=== PATIENT | male | born 1935 | race Caucasian/White ===

== ENCOUNTER → 2018-02-04 11:56 | Outpatient (CLI) | payer MEDICARE, SELFPAY ==
[2018-02-04 14:32] LABS: Absolute Lymphocyte Count 1.62 X10^3/ul (0.83-4.51); Absolute Neutrophil Count 4.8 X10^3/uL (2.0-7.7); Basophil# 0.02 X10^3/uL; Basophil% 0.3 % (0-1); Eosinophil# 0.18 X10^3/uL; Eosinophils% 2.5 % (0-5); Hematocrit 43.4 % (40-54); Hemoglobin 15.1 g/dl (13.0-16.5); Lymphocyte # 1.62 X10^3/ul (4.0); Lymphocyte % 22.4 % (19-41); Mean Corp Hgb Conc 34.8 g/gl (32-36); Mean Corpuscular Hgb 31.1 pg (27.0-32.0); Mean Corpuscular Volume 89.5 fL (80-94); Monocyte% 8.3 % (0-10); Neutrophil # 4.81 X10^3/uL (2.7-7.7); Neutrophil % 66.4 % (47-70); Platelet Count 244 K/mm3 (150-450); RBC Distribution Width SD 45.7 fl (35.1-43.9); Red Blood Count 4.85 M/mm3 (4.6-6.2); White Blood Count 7.2 K/mm3 (4.4-11.0)
[2018-02-04 14:33] LABS: POSITIVE COUNT NO; POSITIVE DIFFERENTIAL NO; POSITIVE MORPHOLOGY NO
[2018-02-04 14:53] LABS: Vitamin D,25 Hydroxy 19.2 ng/mL (29.95-100.01)
[2018-02-04 15:01] LABS: ALB/GLOB Ratio 1.1 RATIO (0.9-2.4); AST(SGOT) 23 U/L (15-37); Alanine Aminotransfer ALT/SGPT 27 U/L (16-61); Albumin, Serum 3.8 g/dL (3.2-5.0); Alkaline Phosphatase 69 U/L (45-117); Anion Gap 12 (5-15); BUN 36 mg/dL (7-18); BUN/Creat Ratio 22.1 RATIO (10-20); Calcium,Total 8.8 mg/dL (8.5-10.1); Chloride 108 mmol/L (98-107); Cholesterol 119 mg/dL (200); Creatinine, Serum 1.63 mg/dL (0.70-1.30); EST Glomerular Filtration Rate 43 mL/min (>60); Est Glom Filt Rate - Afr Amer 52 mL/min (>60); Globulin 3.6 g/dL (2.2-4.2); Glucose 152 mg/dL (74-106); High Density Lipoprotein 37 mg/dL; Protein, Total 7.4 g/dL (6.4-8.2); Sodium Level 142 mmol/L (136-145); Thyroid Stim Hormone (TSH) 2.45 uIU/mL (0.358-3.74); Triglycerides 133 mg/dL; Very Low Density Lipoprotein 27 mg/dL (5-40)
== END ==
PROVIDERS: Family Provider Nurse Practitioner; PCP Nurse Practitioner; Visit Provider Nurse Practitioner
DX: E78.00 Pure hypercholesterolemia, unspecified (principal); I10 Essential (primary) hypertension; E55.9 Vitamin D deficiency, unspecified
CPT/HCPCS: 36415; 80053; 80061; 82306; 84443; 85025

== ENCOUNTER → 2018-04-29 11:18 | Outpatient (CLI) | payer MEDICARE, SELFPAY ==
[2018-04-29 12:10] LABS: Anion Gap 12 (5-15); BUN 34 mg/dL (7-18); BUN/Creat Ratio 22.7 RATIO (10-20); Calcium,Total 9.1 mg/dL (8.5-10.1); Chloride 111 mmol/L (98-107); EST Glomerular Filtration Rate 48 mL/min (>60); Est Glom Filt Rate - Afr Amer 58 mL/min (>60); Glucose 61 mg/dL (74-106); Potassium 4.1 mmol/L (3.5-5.1); Sodium Level 143 mmol/L (136-145)
== END ==
PROVIDERS: Family Provider Nurse Practitioner; PCP Nurse Practitioner; Visit Provider Urology
DX: C64.9 Malignant neoplasm of unspecified kidney, except renal pelvis (principal)
CPT/HCPCS: 36415; 71046; 80048

== ENCOUNTER → 2018-05-05 14:05 | Outpatient (CLI) | payer MEDICARE, SELFPAY | PROVIDERS: Family Provider Nurse Practitioner; PCP Nurse Practitioner; Visit Provider Urology | DX: C64.9 Malignant neoplasm of unspecified kidney, except renal pelvis (principal) | CPT/HCPCS: 74177; Q9967 ==

== ENCOUNTER → 2018-08-03 09:29 | Outpatient (CLI) | payer MEDICARE, SELFPAY ==
[2018-08-03 12:10] LABS: Absolute Neutrophil Count 4.1 X10^3/uL (2.0-7.7); Basophil# 0.02 X10^3/uL; Basophil% 0.3 % (0-1); Eosinophils% 2.8 % (0-5); Hematocrit 46.9 % (40-54); Hemoglobin 15.9 g/dl (13.0-16.5); Lymphocyte % 30.9 % (19-41); Mean Corp Hgb Conc 33.9 g/gl (32-36); Mean Corpuscular Hgb 30.9 pg (27.0-32.0); Mean Corpuscular Volume 91.1 fL (80-94); Mean Platelet Vol. 11.3 fl (6.2-12.0); Monocyte# 0.57 X10^3/uL; Neutrophil # 4.14 X10^3/uL (2.7-7.7); Platelet Count 215 K/mm3 (150-450); RBC Distribution Width CV 14.1 % (11.6-14.6); RBC Distribution Width SD 46.6 fl (35.1-43.9); Red Blood Count 5.15 M/mm3 (4.6-6.2); White Blood Count 7.1 K/mm3 (4.4-11.0)
[2018-08-03 12:19] LABS: POSITIVE COUNT NO; POSITIVE DIFFERENTIAL NO; POSITIVE MORPHOLOGY NO
[2018-08-03 12:25] LABS: Amphetamine Urine VISTA NEGATIVE (<1000 ng/mL); Barbiturate Urine VISTA NEGATIVE (< 200 ng/mL); Benzodiazepine Urine VISTA NEGATIVE (< 200 ng/mL); Cocaine Urine VISTA NEGATIVE (< 300 ng/mL); Ecstacy Urine VISTA NEGATIVE (< 500 ng/mL); Methadone Urine VISTA NEGATIVE (< 300 ng/mL); PCP Urine VISTA NEGATIVE (< 25 ng/mL); THC Urine VISTA NEGATIVE (< 50 ng/mL); Vista UDS pH Range 5
[2018-08-03 12:45] LABS: Vitamin D,25 Hydroxy 42.8 ng/mL (29.95-100.01)
[2018-08-03 12:54] LABS: ALB/GLOB Ratio 1.2 RATIO (0.9-2.4); AST(SGOT) 28 U/L (15-37); Alanine Aminotransfer ALT/SGPT 26 U/L (16-61); Alkaline Phosphatase 70 U/L (45-117); Anion Gap 12 (5-15); BUN 39 mg/dL (7-18); BUN/Creat Ratio 26.5 RATIO (10-20); Calcium,Total 9.2 mg/dL (8.5-10.1); Chloride 109 mmol/L (98-107); Creatinine, Serum 1.47 mg/dL (0.70-1.30); EST Glomerular Filtration Rate 49 mL/min (>60); Est Glom Filt Rate - Afr Amer 59 mL/min (>60); Globulin 3.3 g/dL (2.2-4.2); Glucose 71 mg/dL (74-106); Potassium 4.8 mmol/L (3.5-5.1); Protein, Total 7.3 g/dL (6.4-8.2); Sodium Level 141 mmol/L (136-145)
== END ==
PROVIDERS: Family Provider Nurse Practitioner; PCP Nurse Practitioner; Referring Provider Nurse Practitioner; Visit Provider Nurse Practitioner
DX: E11.9 Type 2 diabetes mellitus without complications (principal); F11.90 Opioid use, unspecified, uncomplicated; E55.9 Vitamin D deficiency, unspecified; Z79.891 Long term (current) use of opiate analgesic
CPT/HCPCS: 36415; 80053; 80307; 82306; 85025

== ENCOUNTER → 2018-11-05 08:18 | Outpatient (CLI) | payer MEDICARE, SELFPAY ==
[2018-11-05 10:16] LABS: Absolute Lymphocyte Count 2.01 X10^3/ul (0.83-4.51); Absolute Neutrophil Count 3.9 X10^3/uL (2.0-7.7); Basophil# 0.02 X10^3/uL; Basophil% 0.3 % (0-1); Eosinophil# 0.24 X10^3/uL; Eosinophils% 3.6 % (0-5); Hematocrit 44.6 % (40-54); Hemoglobin 14.9 g/dl (13.0-16.5); Lymphocyte # 2.01 X10^3/ul (4.0); Lymphocyte % 29.9 % (19-41); Mean Corp Hgb Conc 33.4 g/gl (32-36); Mean Corpuscular Hgb 30.2 pg (27.0-32.0); Mean Corpuscular Volume 90.3 fL (80-94); Mean Platelet Vol. 11.9 fl (6.2-12.0); Monocyte% 8.9 % (0-10); Neutrophil # 3.85 X10^3/uL (2.7-7.7); Neutrophil % 57.2 % (47-70); Platelet Count 217 K/mm3 (150-450); RBC Distribution Width SD 45.8 fl (35.1-43.9); Red Blood Count 4.94 M/mm3 (4.6-6.2); White Blood Count 6.7 K/mm3 (4.4-11.0)
[2018-11-05 10:17] LABS: POSITIVE COUNT NO; POSITIVE DIFFERENTIAL NO; POSITIVE MORPHOLOGY NO
[2018-11-05 10:30] LABS: Microalbumin:Creatinine Ratio 240.4 mg/g CRE (<30 mg/g CRE)
[2018-11-05 10:44] LABS: ALB/GLOB Ratio 1.1 RATIO (0.9-2.4); AST(SGOT) 26 U/L (15-37); Alanine Aminotransfer ALT/SGPT 29 U/L (16-61); Albumin, Serum 3.8 g/dL (3.2-5.0); Alkaline Phosphatase 68 U/L (45-117); Anion Gap 10 (5-15); BUN 27 mg/dL (7-18); BUN/Creat Ratio 19.3 RATIO (10-20); Calcium,Total 9.1 mg/dL (8.5-10.1); Chloride 109 mmol/L (98-107); EST Glomerular Filtration Rate 51 mL/min (>60); Est Glom Filt Rate - Afr Amer 62 mL/min (>60); Globulin 3.5 g/dL (2.2-4.2); Glucose 65 mg/dL (74-106); Potassium 4.2 mmol/L (3.5-5.1); Protein, Total 7.3 g/dL (6.4-8.2); Sodium Level 142 mmol/L (136-145); Thyroid Stim Hormone (TSH) 4.11 uIU/mL (0.358-3.74)
== END ==
PROVIDERS: Family Provider Nurse Practitioner; PCP Nurse Practitioner; Referring Provider Nurse Practitioner; Visit Provider Nurse Practitioner
DX: E11.9 Type 2 diabetes mellitus without complications (principal)
CPT/HCPCS: 36415; 80053; 82043; 82570; 84443; 85025

== ENCOUNTER → 2019-01-04 | Outpatient (CLI) | payer MEDICARE, SELFPAY ==
[2019-01-04 12:53] LABS: PSA,Total - Annual Screen 1.21 ng/mL (0.00-4.00)
== END | disposition home or self-care (01) ==
PROVIDERS: Family Provider Nurse Practitioner; PCP Nurse Practitioner; Referring Provider Nurse Practitioner; Visit Provider Nurse Practitioner
DX: Z12.5 Encounter for screening for malignant neoplasm of prostate (principal)
CPT/HCPCS: 36415; 84153; G0103

== ENCOUNTER → 2019-02-15 | Outpatient (CLI) | payer MEDICARE, SELFPAY ==
[2019-02-15 12:59] LABS: Thyroid Stim Hormone (TSH) 3.24 uIU/mL (0.358-3.74)
== END | disposition home or self-care (01) ==
PROVIDERS: Family Provider Nurse Practitioner; PCP Nurse Practitioner; Referring Provider Nurse Practitioner; Visit Provider Nurse Practitioner
DX: R79.89 Other specified abnormal findings of blood chemistry (principal); I10 Essential (primary) hypertension
CPT/HCPCS: 36415; 84443

== ENCOUNTER → 2019-08-23 12:38 | Outpatient (CLI) | payer MEDICARE, SELFPAY ==
[2019-08-23 13:55] LABS: Absolute Lymphocyte Count 1.69 X10^3/uL (0.83-4.51); Absolute Neutrophil Count 4.4 X10^3/uL (2.0-7.7); Basophil# 0.02 X10^3/uL; Basophil% 0.3 % (0-1); Eosinophil# 0.16 X10^3/uL; Eosinophils% 2.3 % (0-5); Hemoglobin 15.5 g/dL (13.0-16.5); Lymphocyte # 1.69 X10^3/ul (4.0); Lymphocyte % 24.7 % (19-41); Mean Corp Hgb Conc 35.2 g/dL (32-36); Mean Corpuscular Hgb 31.4 pg (27.0-32.0); Mean Corpuscular Volume 89.1 fL (80-94); Mean Platelet Vol. 11.9 fl (6.2-12.0); Monocyte# 0.59 X10^3/uL; Monocyte% 8.6 % (0-10); NRBC Flagged by Analyzer 0 % (0-5); Neutrophil # 4.37 X10^3/uL (2.7-7.7); Neutrophil % 63.8 % (47-70); Platelet Count 226 K/mm3 (150-450); RBC Distribution Width CV 13.2 % (11.6-14.6); RBC Distribution Width SD 42.9 fl (35.1-43.9); Red Blood Count 4.94 M/mm3 (4.6-6.2); White Blood Count 6.9 K/mm3 (4.4-11.0)
[2019-08-23 14:15] LABS: Vitamin B12 485 pg/mL (211-911)
[2019-08-23 14:47] LABS: AST(SGOT) 23 U/L (15-37); Alanine Aminotransfer ALT/SGPT 28 U/L (16-61); Albumin, Serum 3.7 g/dL (3.2-5.0); Alkaline Phosphatase 69 U/L (45-117); Anion Gap 8 (5-15); BUN 28 mg/dL (7-18); BUN/Creat Ratio 18.5 RATIO (10-20); Calcium,Total 9.2 mg/dL (8.5-10.1); Chloride 106 mmol/L (98-107); Creatinine, Serum 1.51 mg/dL (0.70-1.30); EST Glomerular Filtration Rate 47 mL/min (>60); Est Glom Filt Rate - Afr Amer 57 mL/min (>60); Globulin 3.8 g/dL (2.2-4.2); Glucose 118 mg/dL (74-106); Potassium 4.2 mmol/L (3.5-5.1); Protein, Total 7.5 g/dL (6.4-8.2); Sodium Level 138 mmol/L (136-145); Thyroid Stim Hormone (TSH) 1.89 uIU/mL (0.358-3.74)
== END ==
PROVIDERS: Family Provider Nurse Practitioner; PCP Nurse Practitioner; Referring Provider Nurse Practitioner; Visit Provider Nurse Practitioner
DX: I10 Essential (primary) hypertension (principal); D64.9 Anemia, unspecified; E53.8 Deficiency of other specified B group vitamins
CPT/HCPCS: 36415; 80053; 82607; 82746; 84443; 85025

== ENCOUNTER → 2019-10-25 12:21 | Outpatient (CLI) | payer MEDICARE, SELFPAY ==
[2019-10-25 12:40] LABS: Absolute Lymphocyte Count 1.86 X10^3/uL (0.83-4.51); Absolute Neutrophil Count 4.4 X10^3/uL (2.0-7.7); Basophil# 0.02 X10^3/uL; Basophil% 0.3 % (0-1); Eosinophil# 0.19 X10^3/uL; Eosinophils% 2.7 % (0-5); Hematocrit 42.8 % (40-54); Hemoglobin 14.6 g/dL (13.0-16.5); Lymphocyte # 1.86 X10^3/ul (4.0); Lymphocyte % 26.1 % (19-41); Mean Corp Hgb Conc 34.1 g/dL (32-36); Mean Corpuscular Volume 90.9 fL (80-94); Mean Platelet Vol. 11.8 fl (6.2-12.0); Monocyte# 0.61 X10^3/uL; Monocyte% 8.6 % (0-10); NRBC Flagged by Analyzer 0 % (0-5); Neutrophil # 4.42 X10^3/uL (2.7-7.7); Platelet Count 244 K/mm3 (150-450); RBC Distribution Width CV 13.8 % (11.6-14.6); RBC Distribution Width SD 46.3 fl (35.1-43.9); Red Blood Count 4.71 M/mm3 (4.6-6.2); White Blood Count 7.1 K/mm3 (4.4-11.0)
[2019-10-25 13:02] LABS: ALB/GLOB Ratio 0.9 RATIO (0.9-2.4); AST(SGOT) 16 U/L (15-37); Alanine Aminotransfer ALT/SGPT 26 U/L (16-61); Albumin, Serum 3.6 g/dL (3.2-5.0); Alkaline Phosphatase 72 U/L (45-117); Anion Gap 9 (5-15); BUN 36 mg/dL (7-18); BUN/Creat Ratio 23.1 RATIO (10-20); CPK Total, Creatine Kinase 69 U/L (39-308); Calcium,Total 9.7 mg/dL (8.5-10.1); Chloride 108 mmol/L (98-107); Creatinine, Serum 1.56 mg/dL (0.70-1.30); EST Glomerular Filtration Rate 45 mL/min (>60); Est Glom Filt Rate - Afr Amer 55 mL/min (>60); Globulin 3.8 g/dL (2.2-4.2); Glucose 158 mg/dL (74-106); Potassium 4.6 mmol/L (3.5-5.1); Protein, Total 7.4 g/dL (6.4-8.2); Sodium Level 143 mmol/L (136-145); Thyroid Stim Hormone (TSH) 2.43 uIU/mL (0.358-3.74)
[2019-10-26 20:07] LABS: Creatine Kinase MB 0 % (0-3); Creatine Kinase MM 100 % (97-100); Creatine Kinase,Total,Serum 70 U/L (24-204); Macro I 0 % (Not Observed); Macro II 0 % (Not Observed)
[2019-10-26 20:13] LABS: Creatine Kinase BB 0 % (0)
== END ==
PROVIDERS: PCP Nurse Practitioner; Referring Provider Nurse Practitioner; Visit Provider Nurse Practitioner
DX: R42 Dizziness and giddiness (principal); R00.1 Bradycardia, unspecified
CPT/HCPCS: 80053; 82550; 82552; 84443; 84484; 85025

== ENCOUNTER → 2019-10-26 13:11 | Outpatient (CLI) | payer MEDICARE, SELFPAY | PROVIDERS: PCP Nurse Practitioner; Referring Provider Nurse Practitioner; Visit Provider Nurse Practitioner | DX: R42 Dizziness and giddiness (principal); R00.1 Bradycardia, unspecified | CPT/HCPCS: 93225; 93226 ==

== ENCOUNTER → 2020-11-14 10:26 | Outpatient (CLI) | payer MEDICARE, SELFPAY ==
[2020-11-14 12:17] LABS: Absolute Lymphocyte Count 2.19 X10^3/uL (0.83-4.51); Absolute Neutrophil Count 4.6 X10^3/uL (2.0-7.7); Basophil# 0.03 X10^3/uL; Basophil% 0.4 % (0-1); Eosinophil# 0.19 X10^3/uL; Eosinophils% 2.5 % (0-5); Hematocrit 45.8 % (40-54); Hemoglobin 15.9 g/dL (13.0-16.5); Lymphocyte # 2.19 X10^3/ul (4.0); Mean Corp Hgb Conc 34.7 g/dL (32-36); Mean Corpuscular Hgb 31.2 pg (27.0-32.0); Mean Platelet Vol. 12.2 fl (6.2-12.0); Monocyte# 0.48 X10^3/uL; Monocyte% 6.4 % (0-10); NRBC Flagged by Analyzer 0 % (0-5); Neutrophil # 4.64 X10^3/uL (2.7-7.7); Neutrophil % 61.4 % (47-70); Platelet Count 256 K/mm3 (150-450); RBC Distribution Width CV 13.9 % (11.6-14.6); Red Blood Count 5.09 M/mm3 (4.6-6.2); White Blood Count 7.6 K/mm3 (4.4-11.0)
[2020-11-14 12:48] LABS: AST(SGOT) 25 U/L (15-37); Alanine Aminotransfer ALT/SGPT 30 U/L (16-61); Albumin, Serum 3.6 g/dL (3.2-5.0); Alkaline Phosphatase 77 U/L (45-117); Anion Gap 8 (5-15); BUN 25 mg/dL (7-18); BUN/Creat Ratio 18.5 RATIO (10-20); Calcium,Total 9.2 mg/dL (8.5-10.1); Chloride 108 mmol/L (98-107); Creatinine, Serum 1.35 mg/dL (0.70-1.30); EST Glomerular Filtration Rate 53 mL/min (>60); Est Glom Filt Rate - Afr Amer 65 mL/min (>60); Globulin 3.5 g/dL (2.2-4.2); Glucose 84 mg/dL (74-106); Potassium 4.1 mmol/L (3.5-5.1); Protein, Total 7.1 g/dL (6.4-8.2); Sodium Level 141 mmol/L (136-145); Thyroid Stim Hormone (TSH) 2.63 uIU/mL (0.358-3.74)
[2020-11-14 12:57] LABS: Microalbumin:Creatinine Ratio 907.1 mg/g CRE (<30 mg/g CRE)
== END ==
PROVIDERS: PCP Nurse Practitioner; Referring Provider Nurse Practitioner; Visit Provider Nurse Practitioner
DX: N18.9 Chronic kidney disease, unspecified (principal)
CPT/HCPCS: 36415; 80053; 82043; 82570; 84443; 85025

== ENCOUNTER → 2021-02-26 10:33 | Outpatient (CLI) | payer MEDICARE, SELFPAY ==
--- NOTE | 2021-02-26 10:37 | RAD_ITS ---
STUDY: X-RAY - LEFT FOOT CLINICAL: Male, 86 years old. Pain. TECHNIQUE: 3 view(s) of the foot. COMPARISON: None. FINDINGS: Generalized osteopenia. Inferior calcaneal spur. Mild arthrosis of the MTP and IP joints with hammertoe deformities. Linear metallic foreign body projected just medial to the PIP joint of the fifth toe. RAD/Foot min 3 Views IMPRESSION: Osteopenia with osteoarthritic changes. Linear metallic foreign body as described. No acute finding. Electronically Signed: Dandre Flood MD at 10:53 EDT , Service support ,
[2021-02-26 12:25] LABS: Absolute Lymphocyte Count 1.46 X10^3/uL (0.83-4.51); Absolute Neutrophil Count 11.3 X10^3/uL (2.0-7.7); Basophil# 0.03 X10^3/uL; Basophil% 0.2 % (0-1); Eosinophil# 0.08 X10^3/uL; Eosinophils% 0.6 % (0-5); Hematocrit 42.6 % (40-54); Hemoglobin 14.7 g/dL (13.0-16.5); Lymphocyte # 1.46 X10^3/ul (0.83-4.51); Lymphocyte % 10.4 % (19-41); Mean Corp Hgb Conc 34.5 g/dL (32-36); Mean Corpuscular Hgb 30.9 pg (27.0-32.0); Mean Corpuscular Volume 89.7 fL (80-94); Mean Platelet Vol. 11.9 fl (6.2-12.0); Monocyte# 1.13 X10^3/uL; NRBC Flagged by Analyzer 0 % (0-5); Neutrophil # 11.32 X10^3/uL (2.7-7.7); Neutrophil % 80.4 % (47-70); Platelet Count 286 K/mm3 (150-450); RBC Distribution Width CV 13.2 % (11.6-14.6); RBC Distribution Width SD 43.4 fl (35.1-43.9); Red Blood Count 4.75 M/mm3 (4.6-6.2); White Blood Count 14.1 K/mm3 (4.4-11.0)
[2021-02-26 13:14] LABS: Erythrocyte Sedimentation Rate 68 mm/hr (0-20)
[2021-02-26 13:21] LABS: ALB/GLOB Ratio 0.7 RATIO (0.9-2.4); AST(SGOT) 16 U/L (15-37); Alanine Aminotransfer ALT/SGPT 21 U/L (16-61); Albumin, Serum 3.2 g/dL (3.2-5.0); Alkaline Phosphatase 86 U/L (45-117); Anion Gap 11 (5-15); BUN 27 mg/dL (7-18); BUN/Creat Ratio 15.2 RATIO (10-20); Calcium,Total 9.6 mg/dL (8.5-10.1); Chloride 106 mmol/L (98-107); Creatinine, Serum 1.78 mg/dL (0.70-1.30); EST Glomerular Filtration Rate 39 mL/min (>60); Est Glom Filt Rate - Afr Amer 47 mL/min (>60); Globulin 4.6 g/dL (2.2-4.2); Glucose 192 mg/dL (74-106); Potassium 4.4 mmol/L (3.5-5.1); Protein, Total 7.8 g/dL (6.4-8.2); Sodium Level 139 mmol/L (136-145); Thyroid Stim Hormone (TSH) 2.27 uIU/mL (0.358-3.74); Uric Acid 6.5 mg/dL (3.5-7.2)
== END ==
PROVIDERS: PCP Nurse Practitioner; Referring Provider Nurse Practitioner; Visit Provider Nurse Practitioner
DX: M79.672 Pain in left foot (principal); L08.9 Local infection of the skin and subcutaneous tissue, unspecified; I10 Essential (primary) hypertension
CPT/HCPCS: 36415; 73630; 80053; 84443; 84550; 85025; 85652; 86141

== ENCOUNTER → 2021-03-05 10:44 | Outpatient (CLI) | payer MEDICARE, SELFPAY ==
--- NOTE | 2021-03-05 10:45 | ART_ITS ---
Reason For Study: PVD Procedure A bilateral lower extremity continuous wave Doppler with analog waveform analysis,segmental pressures,and ankle brachial indexes without exercise. Left Segmental Pressures Left brachial= 134mmHg. Left thigh = NCmmHg. Left calf = 116mmHg. Left posterior tibial artery = 120mmHg. Left dorsalis pedis artery = 78mmHg. Left digit = 18 mmHg. The left dorsalis pedis waveforms are monophasic. The left posterior tibial artery waveforms are monophasic. Right Segmental Pressures Right brachial= 130mmHg. Right calf = 176mmHg. Right posterior tibial artery = 123mmHg. Right dorsalis pedis artery = 117mmHg. Right digit = 32 mmHg. The right dorsalis pedis waveforms are monophasic. The right posterior tibial artery waveforms are biphasic. Indices The right ankle brachial index by the dorsalis pedis is .87. The right ankle brachial index by the posterior tibial artery is .92. The right digital-brachial index is .24. The left ankle brachial index by the posterior tibial artery is .9. The left ankle brachial index by the dorsalis pedis is .58. The left digital-brachial index is .13. VL/Lower Ext Art Exam w/o Exercis Interpretation Summary Moderately severe bilateral lower extremity arterial occlusive disease at rest based upon ankle- brachial indices. The right posterior tibialis Doppler waveform is biphasic while the dorsalis pe dis is monophasic. The left posterior tibialis and dorsalis pedis Doppler waveforms are both monop hasic Monophasic Doppler waveforms correlate with a more severe level of occlusive di sease The volume pulse recordings demonstrate a significant diminishment in amplitude at the level of the ankles bilaterally consistent with infrageniculate arterial occlusive disease Digital brachial indices are significantly abnormal bilaterally Ordering Physician: Kristy Kothari Referring Physician: KAELYN BEAN Performed By: JAMES GOMEZ RDCS
== END ==
PROVIDERS: PCP Nurse Practitioner; Referring Provider Podiatrist; Visit Provider Podiatrist
DX: I73.9 Peripheral vascular disease, unspecified (principal); L97.522 Non-pressure chronic ulcer of other part of left foot with fat layer exposed
CPT/HCPCS: 93923

== ENCOUNTER → 2021-03-15 14:37 | Outpatient (CLI) | payer MEDICARE, SELFPAY ==
[2021-03-15 14:58] LABS: Absolute Lymphocyte Count 1.79 X10^3/uL (0.83-4.51); Absolute Neutrophil Count 8.3 X10^3/uL (2.0-7.7); Basophil# 0.05 X10^3/uL; Basophil% 0.5 % (0-1); Eosinophil# 0.19 X10^3/uL; Eosinophils% 1.7 % (0-5); Hematocrit 43.2 % (40-54); Hemoglobin 14.8 g/dL (13.0-16.5); Lymphocyte # 1.79 X10^3/ul (0.83-4.51); Lymphocyte % 16.3 % (19-41); Mean Corp Hgb Conc 34.3 g/dL (32-36); Mean Corpuscular Hgb 30.5 pg (27.0-32.0); Mean Corpuscular Volume 89.1 fL (80-94); Mean Platelet Vol. 10.7 fl (6.2-12.0); Monocyte# 0.67 X10^3/uL; Monocyte% 6.1 % (0-10); NRBC Flagged by Analyzer 0 % (0-5); Neutrophil # 8.27 X10^3/uL (2.7-7.7); Neutrophil % 75.1 % (47-70); Platelet Count 480 K/mm3 (150-450); RBC Distribution Width CV 13.2 % (11.6-14.6); RBC Distribution Width SD 43.3 fl (35.1-43.9); Red Blood Count 4.85 M/mm3 (4.6-6.2)
[2021-03-15 15:13] LABS: Anion Gap 7 (5-15); BUN 27 mg/dL (7-18); BUN/Creat Ratio 18.4 RATIO (10-20); Calcium,Total 9.1 mg/dL (8.5-10.1); Chloride 106 mmol/L (98-107); Creatinine, Serum 1.47 mg/dL (0.70-1.30); EST Glomerular Filtration Rate 48 mL/min (>60); Est Glom Filt Rate - Afr Amer 58 mL/min (>60); Glucose 223 mg/dL (74-106); Potassium 4.4 mmol/L (3.5-5.1); Sodium Level 140 mmol/L (136-145)
== END ==
PROVIDERS: Physician Assistant; PCP Nurse Practitioner; Referring Provider Surgery; Visit Provider Surgery
DX: I10 Essential (primary) hypertension (principal); I73.9 Peripheral vascular disease, unspecified
CPT/HCPCS: 36415; 80048; 85025

== ENCOUNTER 2021-03-21 15:31 | Observation (INO) | payer MEDICARE, SELFPAY ==
[2021-03-20 13:38] VITALS: BMI 29.0
--- NOTE | 2021-03-21 08:56 | PCM.HP.BLA ---
History and Physical Date of Admission: 03/21/21 Intake Visit Reasons: PAD Chief Complaint: PAD/Gangreen toe left foot Consolidation Accountant Required: No Accompanied by: Unknown Is patient in pain?: No Allergies No Known Allergies Allergy (Verified 03/15/21 13:59) Medications amlodipine 10 mg PO DAILY 10/31/14 [History Confirmed 03/15/21] lorazepam 0.5 mg PO TID PRN PRN 10/31/14 [History Confirmed 03/15/21] simvastatin 20 mg PO QHS 10/31/14 [History Confirmed 03/15/21] empagliflozin 10 mg tablet 10 mg PO DAILY 12/27/19 [History Confirmed 03/15/21] glipizide 5 mg tablet, extended release 24 hr 5 mg PO DAILY 12/27/19 [History Confirmed 03/15/21] hydrocodone 10 mg-acetaminophen 325 mg tablet 1 tab PO Q8H PRN 12/27/19 [History Confirmed 03/15/21] lisinopril 40 mg tablet 40 mg PO DAILY 12/27/19 [History Confirmed 03/15/21] melatonin 10 mg capsule 10 mg PO HS PRN 12/27/19 [History Confirmed 03/15/21] metformin 500 mg tablet,extended release 24 hr 500 mg PO DAILY 12/27/19 [History Confirmed 03/15/21] vitamin B complex 1 tab PO DAILY 12/27/19 [History Confirmed 03/15/21] esomeprazole magnesium 20 mg capsule,delayed release 20 mg PO DAILY 03/15/21 [History Confirmed 03/15/21] famotidine 20 mg tablet 20 mg PO QHS PRN 03/15/21 [History Confirmed 03/15/21] omeprazole magnesium 20 mg tablet,delayed release 20 mg PO DAILY 03/15/21 [History Confirmed 03/15/21] tamsulosin 0.4 mg capsule 0.4 mg PO DAILY 03/15/21 [History Confirmed 03/15/21] [facility] Medical History (Updated 03/15/21 @ 14:[address] Yovani Mackay MD) Anxiety and depression B12 deficiency Benign prostatic hyperplasia without lower urinary tract symptoms Chronic kidney disease, unspecified Diverticulosis of large intestine without perforation or abscess without bleeding Essential hypertension Gangrene of toe of left foot GERD (gastroesophageal reflux disease) Hallux valgus History of chronic pain History of kidney cancer History of spinal stenosis Hyperlipidemia Insomnia PAD (peripheral artery disease) Tinea pedis Tinea unguium Type 2 diabetes mellitus without complication Vitamin D deficiency, unspecified Surgical History History of appendectomy History of partial nephrectomy History of phacoemulsification of cataract of both eyes with intraocular lens implantation History of rotator cuff surgery Family History Father CVA (cerebral vascular accident) Social History Smoking Status: Never smoker alcohol intake: former year quit: 1989 substance use type: does not use caffeine: Yes HPI HPI HPI: RADHA BETHEA, is a 86 M who presents to the office today for surgical consultation regarding peripheral arterial occlusive disease. The patient is being referred by Dr. Kristy Kothari and a written copy of my surgical consult and recommendations will return to her. Primary care provider is Kaelyn Bean, and [facility]. The patient presented to Dr. Kothari with what appeared to be a gangrenous left fifth toe. By report x-rays show a small piece of wire noted in the distal anterior phalangeal joint medial left fifth toe. Betadine cleansing was recommended. It was recommended to cease the peroxide and to cease ointments. The patient has a history of renal cancer with partial nephrectomy on the right. Laboratory of February 26, 2021 demonstrated a elevated white count of 14.1 with hemoglobin 14.7 hematocrit 42.6 platelet count 286,000. Sed rate was elevated at 68. BUN elevated at 27 with a creatinine of 1.78 and an estimated GFR of 39 placing him in chronic kidney disease stage IIIb. Glucose at that time was 192. A hemoglobin A1c was not obtained at that moment. Noninvasive lower extremity exam was obtained on March 05, 2021. Unfortunate these were difficult to interpret secondary to suspected medial calcification of vessel newman. The patient states that he did have blunt trauma to the left fifth toe. He admits to stubbing it. He states that remotely he worked in the [employer]. 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 Claims that he did not smoke tobacco. He denies myocardial infarction or stroke. States he has never had any previous vascular surgery. He states that he previously was on a 325 mg aspirin tablet per day. He states it may be 3 weeks ago he on his own decided to stop it. I have instructed that on February 26, 2021 his hemoglobin A1c was 6.5. March 05, 2021 Reason For Study: PVD Procedure A bilateral lower extremity continuous wave Doppler with analog waveform analysis,segmental pressures,and ankle brachial indexes without exercise. Left Segmental Pressures Left brachial= 134mmHg. Left thigh = NCmmHg. Left calf = 116mmHg. Left posterior tibial artery = 120mmHg. Left dorsalis pedis artery = 78mmHg. Left digit = 18 mmHg. The left dorsalis pedis waveforms are monophasic. The left posterior tibial artery waveforms are monophasic. Right Segmental Pressures Right brachial= 130mmHg. Right calf = 176mmHg. Right posterior tibial artery = 123mmHg. Right dorsalis pedis artery = 117mmHg. Right digit = 32 mmHg. The right dorsalis pedis waveforms are monophasic. The right posterior tibial artery waveforms are biphasic. Indices The right ankle brachial index by the dorsalis pedis is .87. The right ankle brachial index by the posterior tibial artery is .92. The right digital-brachial index is .24. The left ankle brachial index by the posterior tibial artery is .9. The left ankle brachial index by the dorsalis pedis is .58. The left digital-brachial index is .13. VL/Lower Ext Art Exam w/o Exercis Interpretation Summary Moderately severe bilateral lower extremity arterial occlusive disease at rest based upon ankle- brachial indices. The right posterior tibialis Doppler waveform is biphasic while the dorsalis pedis is monophasic. The left posterior tibialis and dorsalis pedis Doppler waveforms are both monophasic Monophasic Doppler waveforms correlate with a more severe level of occlusive disease The volume pulse recordings demonstrate a significant diminishment in amplitude at the level of the ankles bilaterally consistent with infrageniculate arterial occlusive disease Digital brachial indices are significantly abnormal bilaterally Ordering Physician: Kristy Kothari Referring Physician: KAELYN BEAN Performed By: JAMES GOMEZ [facility] General General: No weight change, appetite, fatigue, colon cancer, breast cancer or weakness HEENT HEENT: No difficulty swallowing, eye injury, eye surgery, swollen glands or hoarseness Endo Endocrine: Yes diabetes mellitus; No thyroid disease, thyroid cancer, Hair loss, heat intolerance or cold intolerance Skin Skin: No rash or changing moles Breast Breast: No left breast lump, right breast lump, nipple discharge, breast pain, abnormal mammogram, abnormal US or breast enlargement Musc Musculoskeletal: Yes back problems; No arthritis, rheumatoid arthritis, gout or joint pain Cardio Cardiovascular: Yes high blood pressure; No murmur, pacemaker, heart disease, atrial fibrillation, heart attack, heart stent, palpitations, shortness of breat with exertion or chest pain Psych Psychiatric: No depression, anxiety or hearing voices Resp Respiratory: No shortness of breath, No sleep apnea, No cough, No COPD, No asthma, No emphysema and No wheezing Gastro Gastrointestinal: No abdominal pain, No nausea or vomiting, No diarrhea, No constipation, No blood in stool, No acid reflux, No hemorrhoids, No ulcers, No gallbladder problem and No black,tarry stools Levar Hematologic: Yes blood thinners, No blood disorders, No bleeding, No anemia and No blood clots Neuro Neurologic: No system reviewed and no additional complaints, except as documented, No as per HPI, No abnormal gait, No abnormal hearing, No abnormal movements, No abnormal speech, No behavioral changes, No burning sensations, No confusion, No convulsions, No disequilibrium, No dizziness, No localized weakness, No frequent falls, No headache(s), No lack of coordination, No loss of vision, No memory loss, Yes numbness, No other visual disturbances, No radicular pain, No restless legs, No sensory deficit, No syncope, Yes tingling, No tremor(s), No weakness and No other Exam Const General: cooperative, comfortable and no acute distress Nutritional Appearance: average body habitus Other: Dyspneic on exertion just getting up on the exam table HENMT Other: Unkempted Eyes General: appearance normal, both eyes and all related structures Chest Other: Kyphosis, increased AP diameter, Resp Auscultation: clear to auscultation bilaterally Other: Reasonable respiratory excursion Cardio Rate: regular rate Rhythm: regular rhythm Other: Bilateral radials 3+. Bilateral brachials 3+. Bilateral carotids 3+. No carotid bruits Bilateral femorals 3+. Bilateral popliteals 3+. Bilateral DPs and PTs are absent GI Palpation: soft and no hepatosplenomegaly Auscultation: normal bowel sounds Musc Other: Kyphosis Neuro Cognition: normal cognition Extrem Other: Both lower extremities demonstrate appropriate and normal venous return filling. Both feet have atrophied toes there is lack of appropriate coloration with paleness of the right foot and hyperemic left foot. Left foot has mild nonpitting swelling. There is dark gangrenous changes of the left fifth digit with eschar tissue at the base of the fifth metatarsal phalangeal joint area. There is a very mild odor. There is erythema on the dorsum of the foot. Psych Affect: normal affect COVID (Procedure Consent) Procedure Criteria Procedure Criteria: Yes Elective The surgeon/proceduralist and patient have discussed in detail the risk of exposure to and/or potential harm posed by the COVID-19 virus with having a surgery/procedure at this time versus the risk of delaying the surgery/procedure. It is not possible to know either the risk of delaying the surgery or procedure or chance of getting an infection with perfect accuracy, but a joint decision was made between the patient and the surgeon/proceduralist to proceed at this time with the scheduled surgery/procedure as indicated on the consent form. Assessment and Plan Assessment and Plan (1) PAD (peripheral artery disease): Status: Acute (2) Gangrene of toe of left foot: Status: Acute (3) Essential hypertension: Status: Chronic Orders: Orders: Basic Metabolic Profile (BMP) Today I73.9 CBC W/Diff, Automated Today I73.9, I10 Plan - Dr. Yovani Mackay MD: 86-year-old gentleman who has gangrene of the left fifth toe. On noninvasive testing and on clinical exam he appears to have bilateral severe infrageniculate arterial occlusive disease. Likely a combination of chronic diabetes mellitus and hyperlipidemia and hypertension. I have instructed the patient that on his appearance today he certainly at high risk for limb loss. I have described to him in great detail that his blockages appear to be from the knee distally. I have absolutely made no guarantees that I can improve his situation with an endovascular approach. I proposed a right common femoral artery access with retrograde approach to the left lower extremity. I have educated the patient that he has stage 3B. I have instructed him that for infrageniculate work I will need to use a contrast medium in order to visualize the vessels and perform intervention. I have not provided him any guarantees that I would be able to improve the situation. He is aware that the innervation could deteriorate the small amount of blood flow that he has currently. I have asked him to resume his aspirin therapy and requested that he initiate aspirin 81 mg daily. The patient had questions regarding his wound foot care management which I have referred him back to Dr. Kothari please He has had an opportunity to ask and have questions answered. He is well aware that he is at risk for digit loss forefoot loss or below-knee leg loss. He is additionally aware as he requires 2 canes to mobilize currently that he would very well likely not be able to utilize a left below-knee prosthesis to ambulate,. Based upon his history I am assuming that his spinal stenosis is complicating the use of his lower extremities. He has had an opportunity to ask and have questions answered. We will schedule and expedite his care. Copy: HELEN DoshiC and Dr. Kristy Mackay M.D., F.A.C.S. I have re-examined the patient. There are no clinical changes since date of exam.
--- NOTE | 2021-03-21 10:51 | PCM.OPRPT ---
Problems Associated Problem List Diagnoses (1) Gangrene of toe of left foot: (2) PAD (peripheral artery disease): Report of Operation Date of Procedure: 03/21/21 Pre-Operative Diagnosis: Critical ischemia left foot with gangrene of the left fifth toe Post-Operative Diagnosis: Critical ischemia left foot with gangrene of the left fifth toe and occlusion of the left anterior tibial artery with severe multi segmental disease of the left peroneal and posterior tibial arteries Surgery/Procedure Performed:: Abdominal pelvic left lower extremity arteriogram with left posterior tibial 2.5 to 3 mm tapered Genesis cross angioplasty and left peroneal 2.5 to 3 mm tapered angioplasty Description of Surgical Findings:: Timeout and informed consent was obtained. 86-year-old gentleman was taken to the special procedures lab placed upon the table. Bilateral groins were sterilely prepped and draped. Throughout the procedure he received a total of 50 mcg of fentanyl and 3 mg of Versed his intravenous sedation. Under ultrasound guidance the right common femoral artery was identified. 2% lidocaine was instilled. Under ultrasound guidance a micropuncture needle was placed retrograde into the right common femoral artery followed by Salinger wire micropuncture sheath and then a short 5 Venezuelan sheath dilator. Using an 035 angled Glidewire a 5 Venezuelan universal flush catheter was placed in the mid infrarenal abdominal aorta. Using Visipaque contrast a abdominal pelvic arteriogram was obtained. Then using the Glidewire the flush catheter was advanced to the proximal left superficial femoral artery. Static views of the left lower extremity were obtained to the proximal calf. I then exchanged out for a Magic wire. I removed the 5 Venezuelan sheath and placed a 45 cm right tip 5 Venezuelan sheath. The patient received 9000 units of heparin. Based upon ACT measurements throughout the procedure he received another 1000 units. Using a 018 quick cross catheter and a 018 airplane pilot photogrammetry wire I was able to get access to the left posterior tibial artery and was able to advance the wire down to and past the malleolus. I advanced the 2.5 to 3 mm tapered Genesis cross balloon to just past the ankle mortise. Balloon angioplasty was performed up to 14 ruthie of pressure for 3 separate maneuvers treating the entire length of the left posterior tibial artery. A completion view was obtained demonstrating dramatic improvement. Utilizing the balloon and smart masking I was able to gain access to the left peroneal artery. In a stepwise fashion this also was serially dilated with a 2.5 to 3 mm tapered balloon. In order to achieve that I had to advance in the balloon and wire to met resistance perform angioplasty and then readvanced the balloon. I was able to treat the left peroneal artery down to the ankle mortise but not upon the foot. The balloon was then removed completion views now demonstrated dramatic improvement in both the left peroneal and posterior tibial arteries. The sheath was exchanged out for short 5 Venezuelan sheath. A 5 Venezuelan minx device was inserted and deployed. Hemostasis was achieved. The left foot had been inspected it now had a palpable 2+ posterior tibial pulse. Specimens none. Drains none. Blood loss minimal. Contrast 60 cc. The patient tolerated the procedure well and he was taken to the recovery area in satisfactory condition without apparent complication. Imaging demonstrates a patent abdominal aorta and bilateral common iliacs bilateral internal iliacs. The left common femoral profundofemoral superficial femoral and popliteal tibial are patent. The left anterior tibial is patent proximally and then very rapidly seemingly completely obstructs. The left peroneal and posterior tibial have diffuse areas of multi segmental occlusive disease involving the tibial peroneal trunk as well. There is flow past the ankle mortise of the left posterior tibial. The peroneal and is shy. Subsequent to the angioplasty of the left peroneal and posterior tibial both these vessels appear to be markedly improved. There is some disease distally in the anterior tibial that remains and there is a small area of plaque in the proximal left peroneal. I felt that further intervention risk potential injury. Yovani Mackay M.D., F.A.C.S. Surgeon: Yovani Mackay Type of Anesthesia: IV Sedation and Local
[2021-03-21 12:05] LABS: Bedside Glucose 106 mg/dL (70-110)
[2021-03-21 13:56] LABS: Bedside Glucose 100 mg/dL (70-110)
--- NOTE | 2021-03-21 15:00 | PN.SURG_ITS ---
Subjective Subjective Patient noted some discomfort in the right groin. Earlier I was called to see this patient in the recovery area of the [facility]. Pressure had been held and pressure was relieved hematoma formed pressure was reheld and then recurrent hematoma formed at that point I was notified. As far as I can tell pressure was held from staff controlled and then staff would be out of the room when then the hematoma recurred. It is of note that the patient had to be reminded multiple times during his procedure in the [facility] about remaining still while intervention was taking place. Objective Data Objective Data Vital Signs: Weight: 184 lb 15.838 oz Body Mass Index (BMI) 29.0 Lab / Micro Data Labs: Laboratory Results - last 24 hr 03/21/21 11:59: POC Glucose 106 03/21/21 13:49: POC Glucose 100 Physical Exam Extremity Extremity Narrative: Right groin is not bleeding externally. There is some swelling medially at the pubis. The artery right common femoral and external iliac easily palpable and can nicely be compressed. Assessment & Plan Assessment/Plan (1) Hematoma: PLAN: Right groin hematoma no active bleeding identified on duplex imaging. I have some concerns that this 86-year-old gentleman is having difficulties with remaining still. At this point I think the safest maneuver is to continue to observe him in the cardiac catheterization lab recovery area and then him admit him for postoperative observation. I have concerns that he may not be able to abide by instructions regarding lying still and activity. There is no current suggestion of any puncture site bleeding. This appears to be well controlled. I suspect it may have been initiated by activity prior to the prescribed amount of bed rest. We will continue to observe. Yovani Mackay M.D., F.A.C.S.
[2021-03-21 15:58] VITALS: BMI 24.2
[2021-03-21 16:00] VITALS: BP 155/73; PULSE 76; RESP 17; TEMP 36.4; O2SAT 98
[2021-03-21] MEDS: 0.9% Normal Saline 1,000 ML 30 ML IV (16:00)
--- NOTE | 2021-03-21 16:04 | PCM.PN.SRG ---
Subjective Subjective Patient is without complaints. He feels that his left foot is more alive. He denies any current right groin pain Objective Data Objective Data Vital Signs: Weight: 184 lb 15.838 oz Body Mass Index (BMI) 29.0 Lab / Micro Data Labs: Laboratory Results - last 24 hr 03/21/21 11:59: POC Glucose 106 03/21/21 13:49: POC Glucose 100 Physical Exam Extremity Extremity Narrative: Right groin clean dry, supple, not pulsatile or expansile, nontender Left lower extremity has a palpable 2+ PT pulse, pink but diminished capillary refill. Assessment & Plan Assessment/Plan (1) Hematoma: PLAN: Patient appears to be very stable. He would otherwise meet criteria for discharge however I believe that he requires intensive observation so that he does not mobilize and agitate and restart right groin bleeding. Unfortunate I believe that he will require constant reminding and observation in order to achieve this. This can most safely be performed in an overnight observation in the hospital. Yovani Mackay M.D., F.A.C.S.
[2021-03-21 17:00] VITALS: BP 144/95; PULSE 83
[2021-03-21 18:00] VITALS: BP 147/79; PULSE 75; O2SAT 98
[2021-03-21 19:00] VITALS: BP 146/77; PULSE 77; O2SAT 98
[2021-03-21 19:33] VITALS: RESP 18; O2SAT 98
[2021-03-21 20:00] VITALS: BP 153/77; PULSE 77; RESP 20; TEMP 36.8; O2SAT 97
[2021-03-21] MEDS: Amox/Clavulanate 875 MG Tablet PO (20:35)
[2021-03-22 02:55] VITALS: BP 124/70; PULSE 91; RESP 18; TEMP 37.1; O2SAT 97
--- NOTE | 2021-03-22 05:26 | PN.SURG_ITS ---
Subjective Subjective Patient has no current complaint. No pain in the right groin. The left foot feels warmer. Objective Data Objective Data Vital Signs: Vital Signs Temp Pulse Resp BP Pulse Ox 98.8 F 91 18 124/70 H 97 03/22/21 02:55 03/22/21 02:55 03/22/21 02:55 03/22/21 02:55 03/22/21 02:55 Oxygen Delivery Method Room Air Weight: 173 lb 8 oz Body Mass Index (BMI) 24.2 Intake & Output: Intake and Output for Last 24 Hours 03/20/21 03/21/21 03/22/21 23:59 23:59 23:59 Intake Total 360 / 600 240 / 240 Output Total 400 / 600 200 / 200 Balance -40 / 0 40 / 40 Lab / Micro Data Labs: Laboratory Results - last 24 hr 03/21/21 11:59: POC Glucose 106 03/21/21 13:49: POC Glucose 100 Physical Exam Extremity Extremity Narrative: Right groin supple, ecchymosis noted, nontender, not expansile Left foot warm better coloration, 2+ left posterior tibial pulse, mild erythema of the forefoot Assessment & Plan Assessment/Plan (1) Gangrene of toe of left foot: (2) PAD (peripheral artery disease): (3) Hematoma: PLAN: The patient has not had any further difficulty with a very small 5 Bel[place]an puncture sheath using the right groin since approximately 2:00 yesterday afternoon. He was held overnight because of concerns that he might not abide by appropriate bedrest instructions. He appears to have done well. Both the right groin and the left foot are stable Because of the erythema left forefoot now the improved blood flow I do recommend home-going antibiotics. The ongoing management of his foot however will be per Vanessa Duckworth CNP and Dr. Kristy Kothari Office follow-up scheduled for his vascular intervention in 10 days Yovani Mackay M.D., F.A.C.S.
--- NOTE | 2021-03-22 05:29 | DCINST_ITS ---
Discharge Instructions Follow Up Care Test Results: Test results from this visit will be discussed in further detail at your follow-up appointment, if applicable. Please refer to the written discharge instructions provided by the special procedure lab. Patient is to schedule office follow-up in approximately 10 days. Recommended ongoing follow-up and medical management with Vanessa Duckworth CNP and Dr. Kristy Mackay M.D., F.A.C.S. Discharge Plan Admission Admit Date/Time: 03/21/21 15:31 Primary Reason for Your Visit: Critical ischemia with gangrene left fifth toe Attending Provider: Yovani Mackay Primary Care Provider: Vanessa Duckworth NP Discharge Orders/Prescriptions Prescriptions: New clopidogrel [Plavix] 75 mg tablet 75 mg PO DAILY Qty: 90 RF: 0 amoxicillin-pot clavulanate 875-125 mg Tablet 875 mg PO BIDCM Qty: 10 RF: 0 Continued hydrocodone-acetaminophen [[place]] 10-325 mg tablet 1 tab PO Q8H PRN (Reason: Pain) RF: 0 glipizide 5 mg tablet extended release 24hr 5 mg PO DAILY RF: 0 Jardiance 10 mg tablet 10 mg PO DAILY RF: 0 metformin 500 mg tablet extended release 24 hr 500 mg PO DAILY RF: 0 lisinopril 40 mg tablet 40 mg PO DAILY RF: 0 vitamin B complex [B Complex-Vitamin B12] Tablet 1 tab PO DAILY RF: 0 melatonin 10 mg capsule 10 mg PO HS PRN (Reason: Insomnia) RF: 0 tamsulosin [Flomax] 0.4 mg capsule 0.4 mg PO DAILY RF: 0 omeprazole magnesium [Prilosec OTC] 20 mg tablet,delayed release (DR/EC) 20 mg PO DAILY RF: 0 esomeprazole magnesium 20 mg capsule,delayed release(DR/EC) 20 mg PO DAILY RF: 0 famotidine 20 mg tablet 20 mg PO QHS PRN (Reason: Heartburn) RF: 0 lorazepam 0.5 MG tablet 0.5 mg PO TID PRN PRN (Reason: Anxiety) RF: 0 amlodipine 10 MG tablet 10 mg PO DAILY RF: 0 simvastatin 20 MG tablet 20 mg PO QHS RF: 0 Referrals / Follow Up: Kristy Kothari DPM [STAFF PHYSICIAN] - Yovani Mackay MD [STAFF PHYSICIAN] - Vanessa Duckworth EARLY CHILDHOOD TEACHER, EARLY CHILDHOOD TEACHER-C [Primary Care Provider] - Disposition Disposition (needs filled in before D/C Order can be placed): Home, Self Care
[2021-03-22 06:08] LABS: Absolute Lymphocyte Count 1.55 X10^3/uL (0.83-4.51); Basophil# 0.03 X10^3/uL; Basophil% 0.3 % (0-1); Eosinophil# 0.14 X10^3/uL; Eosinophils% 1.5 % (0-5); Hematocrit 37.5 % (40-54); Hemoglobin 12.9 g/dL (13.0-16.5); Lymphocyte # 1.55 X10^3/ul (0.83-4.51); Lymphocyte % 16.2 % (19-41); Mean Corp Hgb Conc 34.4 g/dL (32-36); Mean Corpuscular Hgb 30.9 pg (27.0-32.0); Mean Corpuscular Volume 89.7 fL (80-94); Mean Platelet Vol. 10.8 fl (6.2-12.0); Monocyte# 0.83 X10^3/uL; Monocyte% 8.7 % (0-10); NRBC Flagged by Analyzer 0 % (0-5); Neutrophil # 6.96 X10^3/uL (2.7-7.7); Neutrophil % 72.9 % (47-70); Platelet Count 319 K/mm3 (150-450); RBC Distribution Width CV 13.3 % (11.6-14.6); RBC Distribution Width SD 43.8 fl (35.1-43.9); Red Blood Count 4.18 M/mm3 (4.6-6.2); White Blood Count 9.6 K/mm3 (4.4-11.0)
[2021-03-22 06:12] VITALS: BP 157/71; PULSE 80; RESP 20; TEMP 37.1; O2SAT 97
[2021-03-22] MEDS: 0.9% Saline Lock 10 ML Syringe IV (06:21)
[2021-03-22 06:49] LABS: Anion Gap 9 (5-15); BUN 18 mg/dL (7-18); BUN/Creat Ratio 13.7 RATIO (10-20); Calcium,Total 8.9 mg/dL (8.5-10.1); Chloride 108 mmol/L (98-107); Creatinine, Serum 1.31 mg/dL (0.70-1.30); EST Glomerular Filtration Rate 55 mL/min (>60); Est Glom Filt Rate - Afr Amer 67 mL/min (>60); Estimated Creatinine Clearance 43.11 ml/min; Glucose 131 mg/dL (74-106); Sodium Level 140 mmol/L (136-145)
== END 2021-03-22 06:55 | disposition home or self-care (01) ==
LOC: PCU 15:53
PROVIDERS: Physician Assistant; Admitting Provider Surgery; PCP Nurse Practitioner; Referring Provider Surgery; Visit Provider Surgery
DX: E11.52 Type 2 diabetes mellitus with diabetic peripheral angiopathy with gangrene (principal); F41.9 Anxiety disorder, unspecified; I97.638 Postprocedural hematoma of a circulatory system organ or structure following other circulatory system procedure; F32.9 Major depressive disorder, single episode, unspecified; K21.9 Gastro-esophageal reflux disease without esophagitis; N18.32 Chronic kidney disease, stage 3b; I12.9 Hypertensive chronic kidney disease with stage 1 through stage 4 chronic kidney disease, or unspecified chronic kidney disease; N40.0 Benign prostatic hyperplasia without lower urinary tract symptoms; G89.29 Other chronic pain; E78.5 Hyperlipidemia, unspecified; Z79.84 Long term (current) use of oral hypoglycemic drugs; Z79.899 Other long term (current) drug therapy; Z85.528 Personal history of other malignant neoplasm of kidney; E53.8 Deficiency of other specified B group vitamins; Z87.891 Personal history of nicotine dependence; Y84.6 Urinary catheterization as the cause of abnormal reaction of the patient, or of later complication, without mention of misadventure at the time of the procedure
CPT/HCPCS: 36200; 36245; 36415; 37228; 37232; 75625; 75710; 76937; 80048; 82962; 85025; 93005; 93926; 99152; 99153; 99218; 99251; C1760; J7030; Q9967; A4216; C1725; C1769; C1894; G0378; G0379; G0463

== ENCOUNTER → 2021-04-16 12:41 | Outpatient (CLI) | payer MEDICARE, SELFPAY ==
[2021-04-05 06:02] VITALS: BMI 24.2
--- NOTE | 2021-04-16 12:42 | ADUL_ITS ---
Reason For Study: PAD, s/p intervention Right Velocities Ext. Iliac Artery, dist = 56 cm./sec. Common Femoral Artery, mid = 106 cm./sec. Supf Femoral Artery, prox = 148 cm./sec. Profunda Femoral Artery = 100 cm./sec. Rt CFV is compressible with normal flow Hypoechoic, non vascular structure noted Rt Groin measuring 1.04cm x 3.50cm. Procedure Exam performed in department. VL/US Art Duplex Unilat Lower Ext Interpretation Summary Patent with normal flow right external iliac, common femoral, superficial femor al, and profundofemoral arteries. Patent and compressible right common femoral vein Nonvascular hypoechoic right groin structure 1.04 x 3.5 cm consistent with post procedural hematoma Ordering Physician: Yovani Mackay Referring Physician: Vanessa Duckworth Performed By: Lis Robles RDCS, RVT
== END ==
PROVIDERS: PCP Nurse Practitioner; Referring Provider Surgery; Visit Provider Surgery
DX: I96 Gangrene, not elsewhere classified (principal)
CPT/HCPCS: 93926

== ENCOUNTER → 2021-06-05 15:48 | Outpatient (CLI) | payer MEDICARE, SELFPAY ==
--- NOTE | 2021-06-05 15:51 | RAD_ITS ---
STUDY: X-RAY - LEFT FOOT CLINICAL: Male, 86 years old. Foot pain. TECHNIQUE: 3 view(s) of the foot. COMPARISON: 02/26/2021. FINDINGS: Marked soft tissue swelling over the distal aspect of the fifth digit. Erosion of the phalanges of the fifth digit and the head of the fifth metatarsal. There is no given history of resection. These findings are compatible with contiguous spread extensive osteomyelitis of the fifth digit. RAD/Foot min 3 Views IMPRESSION: Extensive osteomyelitis of the distal aspect of the fifth digit. Electronically Signed: Dandre Flood MD at 9:54 EDT , Service support ,
== END ==
PROVIDERS: PCP Nurse Practitioner; Referring Provider Podiatrist; Visit Provider Podiatrist
DX: M86.8X7 Other osteomyelitis, ankle and foot (principal)
CPT/HCPCS: 73630

== ENCOUNTER → 2021-09-04 14:59 | Outpatient (CLI) | payer MEDICARE, SELFPAY ==
[2021-09-04 18:23] LABS: Absolute Lymphocyte Count 1.86 X10^3/uL (0.83-4.51); Absolute Neutrophil Count 5.3 X10^3/uL (2.0-7.7); Basophil# 0.04 X10^3/uL; Basophil% 0.5 % (0-1); Eosinophil# 0.16 X10^3/uL; Hematocrit 46.1 % (40-54); Hemoglobin 15.8 g/dL (13.0-16.5); Lymphocyte # 1.86 X10^3/ul (0.83-4.51); Lymphocyte % 23.2 % (19-41); Mean Corp Hgb Conc 34.3 g/dL (32-36); Mean Corpuscular Hgb 30.9 pg (27.0-32.0); Monocyte# 0.65 X10^3/uL; Monocyte% 8.1 % (0-10); NRBC Flagged by Analyzer 0 % (0-5); Neutrophil # 5.28 X10^3/uL (2.7-7.7); Platelet Count 277 K/mm3 (150-450); RBC Distribution Width CV 14.1 % (11.6-14.6); RBC Distribution Width SD 46.5 fl (35.1-43.9); Red Blood Count 5.12 M/mm3 (4.6-6.2)
[2021-09-04 18:59] LABS: AST(SGOT) 24 U/L (15-37); Alanine Aminotransfer ALT/SGPT 31 U/L (16-61); Albumin, Serum 3.9 g/dL (3.2-5.0); Alkaline Phosphatase 74 U/L (45-117); Anion Gap 10 (5-15); BUN 27 mg/dL (7-18); BUN/Creat Ratio 18.1 RATIO (10-20); Calcium,Total 9.6 mg/dL (8.5-10.1); Chloride 106 mmol/L (98-107); Creatinine, Serum 1.49 mg/dL (0.70-1.30); EST Glomerular Filtration Rate 48 mL/min (>60); Est Glom Filt Rate - Afr Amer 57 mL/min (>60); Globulin 3.8 g/dL (2.2-4.2); Glucose 176 mg/dL (74-106); Potassium 4.5 mmol/L (3.5-5.1); Protein, Total 7.7 g/dL (6.4-8.2); Sodium Level 140 mmol/L (136-145); Thyroid Stim Hormone (TSH) 2.73 uIU/mL (0.358-3.74)
== END ==
PROVIDERS: PCP Nurse Practitioner; Referring Provider Nurse Practitioner; Visit Provider Nurse Practitioner
DX: E11.9 Type 2 diabetes mellitus without complications (principal)
CPT/HCPCS: 36415; 80053; 84443; 85025

== ENCOUNTER 2021-12-03 13:03 | Outpatient (CLI) | payer MEDICARE, SELFPAY ==
--- NOTE | 2021-12-03 13:24 | RAD_ITS ---
History: PAIN AP pelvis and left hip, 3 views: Findings: No fracture or subluxation. Joint spaces and soft tissues are normal. IMPRESSION: No acute abnormality. at 1620 Reported and signed by: Steve Ellis MD Electronically Signed: Steve Ellis MD at 16:19 EDT , RAD/HIP, UNI W/ Pelvis 2-3 Views
--- NOTE | 2021-12-03 13:24 | RAD_ITS ---
History: BACK PAIN Lumbar spine AP and lateral views: Findings: No fracture or subluxation. Prominent multilevel disc space narrowing and vertebral body spurring. Pedicles and posterior elements appear intact. IMPRESSION: Prominent diffuse spondylosis. at 1620 Reported and signed by: Steve Ellis MD Electronically Signed: Steve Ellis MD at 16:19 EDT , RAD/Lumbar Spine 2 or 3 Views
[2021-12-03 15:44] LABS: Amphetamine Urine VISTA NEGATIVE (<1000 ng/mL); Barbiturate Urine VISTA NEGATIVE (< 200 ng/mL); Benzodiazepine Urine VISTA NEGATIVE (< 200 ng/mL); Cocaine Urine VISTA NEGATIVE (< 300 ng/mL); Ecstacy Urine VISTA NEGATIVE (< 500 ng/mL); Methadone Urine VISTA NEGATIVE (< 300 ng/mL); PCP Urine VISTA NEGATIVE (< 25 ng/mL); THC Urine VISTA NEGATIVE (< 50 ng/mL); Vista UDS pH Range 5
== END 2021-12-03 23:59 | disposition home or self-care (01) ==
LOC: MTLAB 13:04
PROVIDERS: PCP Nurse Practitioner; Referring Provider Anesthesiology Pain Medicine; Visit Provider Anesthesiology Pain Medicine
DX: M25.552 Pain in left hip (principal); F11.20 Opioid dependence, uncomplicated; M54.9 Dorsalgia, unspecified
CPT/HCPCS: 72100; 73502; 80307

== ENCOUNTER → 2022-06-10 | Outpatient (CLI) | payer MEDICARE, SELFPAY ==
[2022-06-10 12:29] LABS: Absolute Lymphocyte Count 2.13 X10^3/uL (0.83-4.51); Basophil# 0.02 X10^3/uL; Basophil% 0.3 % (0-1); Eosinophil# 0.24 X10^3/uL; Eosinophils% 3.4 % (0-5); Hemoglobin 15.7 g/dL (13.0-16.5); Lymphocyte # 2.13 X10^3/ul (0.83-4.51); Lymphocyte % 30.3 % (19-41); Mean Corp Hgb Conc 34.9 g/dL (32-36); Mean Corpuscular Hgb 31.3 pg (27.0-32.0); Mean Corpuscular Volume 89.8 fL (80-94); Mean Platelet Vol. 11.5 fl (6.2-12.0); Monocyte# 0.62 X10^3/uL; Monocyte% 8.8 % (0-10); NRBC Flagged by Analyzer 0 % (0-5); Neutrophil # 3.99 X10^3/uL (2.7-7.7); Neutrophil % 56.9 % (47-70); Platelet Count 282 K/mm3 (150-450); RBC Distribution Width CV 13.8 % (11.6-14.6); RBC Distribution Width SD 45.5 fl (35.1-43.9); Red Blood Count 5.01 M/mm3 (4.6-6.2)
[2022-06-10 13:09] LABS: ALB/GLOB Ratio 0.9 RATIO (0.9-2.4); AST(SGOT) 35 U/L (15-37); Alanine Aminotransfer ALT/SGPT 32 U/L (16-61); Albumin, Serum 3.5 g/dL (3.2-5.0); Alkaline Phosphatase 111 U/L (45-117); Anion Gap 10 (5-15); BUN 29 mg/dL (7-18); BUN/Creat Ratio 19.1 RATIO (10-20); Calcium,Total 9.2 mg/dL (8.5-10.1); Chloride 104 mmol/L (98-107); Cholesterol 110 mg/dL (200); Creatinine, Serum 1.52 mg/dL (0.70-1.30); EST Glomerular Filtration Rate 46 mL/min (>60); Est Glom Filt Rate - Afr Amer 56 mL/min (>60); Globulin 3.9 g/dL (2.2-4.2); Glucose 111 mg/dL (74-106); High Density Lipoprotein 37 mg/dL; PSA,Total - Annual Screen 1.98 ng/mL (0.00-4.00); Potassium 4.3 mmol/L (3.5-5.1); Protein, Total 7.4 g/dL (6.4-8.2); Sodium Level 140 mmol/L (136-145); Thyroid Stim Hormone (TSH) 2.92 uIU/mL (0.358-3.74); Triglycerides 121 mg/dL; Very Low Density Lipoprotein 24 mg/dL (5-40)
== END | disposition home or self-care (01) ==
LOC: MTLAB 10:05
PROVIDERS: PCP Nurse Practitioner Family; Referring Provider Nurse Practitioner Family; Visit Provider Nurse Practitioner Family
DX: R79.89 Other specified abnormal findings of blood chemistry (principal); E11.9 Type 2 diabetes mellitus without complications; D64.9 Anemia, unspecified; N40.0 Benign prostatic hyperplasia without lower urinary tract symptoms; Z12.5 Encounter for screening for malignant neoplasm of prostate
CPT/HCPCS: 36415; 80053; 80061; 84153; 84443; 85025; G0103

== ENCOUNTER → 2022-12-10 | Outpatient (CLI) | payer MEDICARE, SELFPAY ==
[2022-12-10 12:53] LABS: ALB/GLOB Ratio 0.9 RATIO (0.9-2.4); AST(SGOT) 25 U/L (15-37); Alanine Aminotransfer ALT/SGPT 27 U/L (16-61); Albumin, Serum 3.4 g/dL (3.2-5.0); Alkaline Phosphatase 91 U/L (45-117); Anion Gap 6 (5-15); BUN 29 mg/dL (7-18); BUN/Creat Ratio 21.5 RATIO (10-20); Calcium,Total 9.1 mg/dL (8.5-10.1); Chloride 109 mmol/L (98-107); Cholesterol 107 mg/dL (200); Creatinine, Serum 1.35 mg/dL (0.70-1.30); EST Glomerular Filtration Rate 53 mL/min (>60); Est Glom Filt Rate - Afr Amer 64 mL/min (>60); Globulin 3.6 g/dL (2.2-4.2); Glucose 108 mg/dL (74-106); High Density Lipoprotein 37 mg/dL; Potassium 4.3 mmol/L (3.5-5.1); Sodium Level 139 mmol/L (136-145); Triglycerides 135 mg/dL; Very Low Density Lipoprotein 27 mg/dL (5-40)
[2022-12-10 13:25] LABS: Microalbumin:Creatinine Ratio 1133.6 mg/g CRE (<30 mg/g CRE)
[2022-12-12 12:09] LABS: PROEL- A/G Ratio 1.2 (0.7-1.7); PROEL- Albumin 3.6 g/dL (2.9-4.4); PROEL- Alpha-1 Globulin 0.3 g/dL (0.0-0.4); PROEL- Alpha-2 Globulin 0.9 g/dL (0.4-1.0); PROEL- Globulin, Total 3.1 g/dL (2.2-3.9); PROEL- TOTAL PROTEIN 6.7 g/dL (6.0-8.5); PROELU- Albumin, Urine 67.5 % (.); PROELU- Alpha-1-Globulin,Ur 6.1 % (.); PROELU- Alpha-2-Globulin,Ur 5.9 % (.); PROELU- Gamma Globulin, Ur 8.5 % (.); Total Protein, Ur 144.6 mg/dL (Not Estab.)
== END | disposition home or self-care (01) ==
LOC: MTLAB 09:35
PROVIDERS: PCP Nurse Practitioner Family; Referring Provider Nurse Practitioner Family; Visit Provider Nurse Practitioner Family
DX: E78.00 Pure hypercholesterolemia, unspecified (principal); R80.9 Proteinuria, unspecified; I10 Essential (primary) hypertension
CPT/HCPCS: 36415; 80053; 80061; 82043; 82570; 84165; 84166

== ENCOUNTER → 2023-03-18 | Outpatient (CLI) | payer MEDICARE, SELFPAY ==
[2023-03-18 15:24] LABS: Absolute Lymphocyte Count 2.04 X10^3/uL (0.83-4.51); Basophil# 0.03 X10^3/uL; Basophil% 0.4 % (0-1); Eosinophil# 0.25 X10^3/uL; Eosinophils% 3.1 % (0-5); Hematocrit 44.6 % (40-54); Hemoglobin 15.1 g/dL (13.0-16.5); Lymphocyte # 2.04 X10^3/ul (0.83-4.51); Lymphocyte % 25.6 % (19-41); Mean Corp Hgb Conc 33.9 g/dL (32-36); Mean Corpuscular Hgb 30.4 pg (27.0-32.0); Mean Corpuscular Volume 89.9 fL (80-94); Monocyte# 0.66 X10^3/uL; Monocyte% 8.3 % (0-10); NRBC Flagged by Analyzer 0 % (0-5); Neutrophil # 4.95 X10^3/uL (2.7-7.7); Neutrophil % 62.2 % (47-70); Platelet Count 277 K/mm3 (150-450); RBC Distribution Width CV 13.9 % (11.6-14.6); RBC Distribution Width SD 45.2 fl (35.1-43.9); Red Blood Count 4.96 M/mm3 (4.6-6.2)
[2023-03-18 15:36] LABS: ALB/GLOB Ratio 0.9 RATIO (0.9-2.4); AST(SGOT) 26 U/L (15-37); Alanine Aminotransfer ALT/SGPT 25 U/L (16-61); Albumin, Serum 3.6 g/dL (3.2-5.0); Alkaline Phosphatase 98 U/L (45-117); Anion Gap 9 (5-15); BUN 47 mg/dL (7-18); BUN/Creat Ratio 26.9 RATIO (10-20); Calcium,Total 9.1 mg/dL (8.5-10.1); Chloride 111 mmol/L (98-107); Creatinine, Serum 1.75 mg/dL (0.70-1.30); EST Glomerular Filtration Rate 39 mL/min (>60); Est Glom Filt Rate - Afr Amer 48 mL/min (>60); Globulin 3.8 g/dL (2.2-4.2); Glucose 93 mg/dL (74-106); Potassium 4.4 mmol/L (3.5-5.1); Protein, Total 7.4 g/dL (6.4-8.2); Sodium Level 140 mmol/L (136-145); Thyroid Stim Hormone (TSH) 3.07 uIU/mL (0.358-3.74)
[2023-03-18 17:14] LABS: Microalbumin:Creatinine Ratio 455.4 mg/g CRE (<30 mg/g CRE)
[2023-03-20 15:09] LABS: Free Kappa Light Chains 70.2 mg/L (3.3-19.4); Immunoglobulin A 240 mg/dL (61-437); Immunoglobulin G 916 mg/dL (603-1613); Immunoglobulin M 74 mg/dL (15-143)
== END | disposition home or self-care (01) ==
LOC: MTLAB 12:39
PROVIDERS: PCP Nurse Practitioner Family; Referring Provider Nurse Practitioner Family; Visit Provider Nurse Practitioner Family
DX: E11.22 Type 2 diabetes mellitus with diabetic chronic kidney disease (principal); N18.30 Chronic kidney disease, stage 3 unspecified; D47.2 Monoclonal gammopathy
CPT/HCPCS: 36415; 80053; 82043; 82570; 82784; 83883; 84443; 85025; 86334

== ENCOUNTER 2023-03-29 04:13 | Emergency (ER) | payer MEDICARE, SELFPAY ==
[2023-03-29 04:14] VITALS: BP 218/87; PULSE 58; RESP 16; TEMP 36.6; O2SAT 99; BMI 24.6
--- NOTE | 2023-03-29 04:17 | EDS_ITS ---
HPI History of Present Illness Chief Complaint: Abd Pain [facility] Medical History Anxiety and depression B12 deficiency Benign prostatic hyperplasia without lower urinary tract symptoms Chronic kidney disease, unspecified Diverticulosis of large intestine without perforation or abscess without bleeding Essential hypertension Gangrene of toe of left foot GERD (gastroesophageal reflux disease) Hallux valgus History of chronic pain History of kidney cancer History of spinal stenosis Hyperlipidemia Insomnia PAD (peripheral artery disease) Tinea pedis Tinea unguium Type 2 diabetes mellitus without complication Vitamin D deficiency, unspecified Home Medications amlodipine 10 mg tablet 10 mg PO DAILY 10/31/14 [History Last Taken Unknown] lorazepam 0.5 mg tablet 0.5 mg PO TID PRN PRN Anxiety 10/31/14 [History Last Taken Unknown] simvastatin 20 mg tablet 20 mg PO QHS 10/31/14 [History Last Taken Unknown] empagliflozin 10 mg tablet (Jardiance) 10 mg PO DAILY 12/27/19 [History Last Taken Unknown] glipizide 5 mg tablet, extended release 24 hr 5 mg PO DAILY 12/27/19 [History Last Taken Unknown] hydrocodone 10 mg-acetaminophen 325 mg tablet ([place]) 1 tab PO Q8H PRN Pain 12/27/19 [History Last Taken Unknown] lisinopril 40 mg tablet 40 mg PO DAILY 12/27/19 [History Last Taken Unknown] melatonin 10 mg capsule 10 mg PO HS PRN Insomnia 12/27/19 [History Last Taken Unknown] metformin 500 mg tablet,extended release 24 hr 500 mg PO DAILY 12/27/19 [History Last Taken Unknown] vitamin B complex (B Complex-Vitamin B12 tablet) 1 tab PO DAILY 12/27/19 [History Last Taken Unknown] esomeprazole magnesium 20 mg capsule,delayed release 20 mg PO DAILY 03/15/21 [History Last Taken Unknown] famotidine 20 mg tablet 20 mg PO QHS PRN Heartburn 03/15/21 [History Last Taken Unknown] omeprazole magnesium 20 mg tablet,delayed release (Prilosec OTC) 20 mg PO DAILY 03/15/21 [History Last Taken Unknown] tamsulosin 0.4 mg capsule (Flomax) 0.4 mg PO DAILY 03/15/21 [History Last Taken Unknown] clopidogrel 75 mg tablet (Plavix) 75 mg PO DAILY #90 tabs 03/21/21 [Rx Last Taken Unknown] amoxicillin 875 mg-potassium clavulanate 125 mg tablet 875 mg (0.875 x 875-125 mg) PO BIDCM #10 tabs 03/22/21 [Rx Last Taken Unknown] Allergy/AdvReac Type Severity Reaction Status Date / Time No Known Allergies Allergy Verified 03/29/23 04:14 Family History Father CVA (cerebral vascular accident) Surgical History History of appendectomy History of partial nephrectomy History of phacoemulsification of cataract of both eyes with intraocular lens implantation History of rotator cuff surgery Social History Smoking Status: Never smoker alcohol intake: former year quit: 1989 substance use type: does not use caffeine: Yes EXAM Physical Exam Const Vital Signs: 03/29/23 04:14 Temperature 98 F Temperature Source Oral Pulse Rate 58 L Respiratory Rate 16 Blood Pressure 218/87 H Blood Pressure Mean 130 Pulse Ox 99 MDM MDM MDM Narrative Medical decision making narrative: HISTORY OF PRESENT ILLNESS: 88-year-old male here with middle abdominal pain that started approximately 15 minutes prior to arrival. The patient further states his pain is located in the mid-abdomen it is improving. It is not radiating. Is not associated syncope. He denies any focal loss sensation numbness or weakness. No vomiting. No fever. No chest pain. No shortness of breath. Denies any urinary complaints, frequency, urgency. Denies any constipation or diarrhea. REVIEW OF SYSTEMS: Pertinent positives: Abdominal pain Pertinent negatives: Chest pain, shortness of breath, focal weakness, vomiting or syncope PHYSICAL EXAM: Nursing triage notes reviewed, Vital signs reviewed Constitutional: please see mdm HENT: MMM Eyes: Pupils equal round and reactive to light, Extraocular muscles intact Neck: No stridor, no JVD, full neck ROM Lungs: Clear to auscultation, No wheezing or rales. No increased work of breathing, no conversational dyspnea, no accessory muscle use, no nasal flaring. No respiratory distress noted Heart: Regular rate and rhythm, No murmurs, No rubs and No gallops, 2+ distal pulses (radial, femoral, posterior tibial) in all extremities Abdomen: Soft, diffuse mid abdominal tenderness, there is no rigidity, rebound or guarding, no obvious peritoneal signs, no obvious palpable pulsatile abdominal masses, no auscultated abdominal bruit : No CVAT Extremities: No edema Neuro: No focal neurological deficits, cranial nerves II through XII intact, 5/5 strength in all extremities. Intact sensation to light touch in all extremities, 2+ reflexes bilateral patella tendons. Normal gait. No ataxia. Skin: No rash or lesions noted MEDICAL DECISION MAKING: Chief Complaint: Abdominal pain External records reviewed: CT scan of the abdomen pelvis from 2018 shows diverticulosis Factors affecting care: GERD, hypertension, hyperlipidemia, peripheral artery disease, type 2 diabetes, CKD, diverticulosis Social determinants of health: Never smoker, no alcohol abuse History obtained from others: Patient's Consults: none ALL IMAGES (IF OBTAINED) HAVE BEEN PERSONALLY REVIEWED AND INTERPRETED BY MYSELF. EKG with sinus bradycardia, left axis deviation, normal intervals, no obvious STEMI, no atrial fibrillation CBC without evidence of leukocytosis, no anemia or thrombocytopenia noted Urinalysis shows no evidence of urinary inflammation suggestive of UTI Lactate elevated concerning for endorgan hypoperfusion, repeat lactate downtrending LFTs with mild elevations in AST and ALT in a alcohol-induced pattern, mild elevation alkaline phosphatase BMP without significant electrolyte abnormalities, there is no anion gap to suggest endorgan hypoperfusion, there is stable CKD MDM Narrative: Patient was initially hypertensive (improved after pain medications), otherwise afebrile. Abdominal exam without obvious peritoneal signs. There is no obvious hernias. I considered the following differential diagnosis: Perforation, obstruction, incarcerated hernia, mesenteric ischemia, nephrolithiasis, pyelonephritis, UTI I obtained a broad lab and imaging work-up to further elucidate the etiology the patient complaints. I treated the patient with IV morphine, Zofran and fluids. Kept NPO. I obtained a CT scan of the abdomen pelvis with contrast. I also ordered a broad lab work-up including lactate EKG liver function, pancreas function, urinalysis. CT scan was negative for acute intra-abdominal pathology. Labs with evidence of elevated lactate which is unclear at this time. We will give a fluid bolus and repeat lactate to ensure it is downtrending prior to final disposition. Repeat lactate is downtrending. Vital signs improved. Repeat abdominal exam was benign. There is no clear etiology at this time. I suspect the patient may have had abdominal herniation that resolved spontaneously. I did give general surgery and PCP follow-up. I see nothing that would suggest an acute abdomen at this time. Based on history physical exam, risk factors, I have a low for bowel obstruction, incarcerated hernia, acute pancreatitis, intra-abdominal abscess, perforated viscus, diverticulitis, cholecystitis, appendicitis, is very low. There is no evidence of peritonitis sepsis or toxicity at this time. I feel the patient can be managed as an outpatient with follow-up with her primary physician in the next 24 to 48 hours or soon as possible. Instructions have been given for the patient to return to the ED for worsening pain, anorexia, high fevers, intractable vomiting or bleeding. The patient and/or family, caregivers express understanding. The patient and/or family, caregivers agrees with the plan. Shared decision making: I will have a discussion with the patient and or visitors regarding risk/benefits of further testing or admission. They will be made aware of of the risk/benefits inherent in this decision they will be given the opportunity to voice understanding. Total critical care time today provided was at least 0 minutes. This excludes separately billable procedures. Critical care time (if documented) is secondary to the patient having high probability of clinically significant/life threatening deterioration in the patient's condition which required my urgent intervention. Lab Data Attestation: I reviewed the patient's lab results. Labs: Laboratory Results - last 24 hr 03/29/23 03/29/23 03/29/23 04:35 05:05 05:15 WBC 7.4 RBC 4.95 Hgb 15.3 Hct 43.8 MCV 88.5 MCH 30.9 MCHC 34.9 RDW Std Deviation 43.9 RDW Coeff of Jose 13.6 Plt Count 166 MPV 12.0 Immature Gran % (Auto) 0.100 Neut % (Auto) 58.9 Lymph % (Auto) 28.1 [place] % (Auto) 8.5 Eos % (Auto) 4.1 Baso % (Auto) 0.3 Absolute Neuts (auto) 4.3 Absolute Lymphs (auto) 2.07 Nucleated RBC % 0 Sodium 141 Potassium 4.6 Chloride 112 H Carbon Dioxide 22.0 Anion Gap 7 BUN 36 H Creatinine 1.45 H Estim Creat Clear Calc 37.51 Est GFR (MDRD) Af Amer 59 L Est GFR (MDRD) Non-Af 49 L BUN/Creatinine Ratio 24.8 H Glucose 132 H Lactic Acid Cancelled 2.3 H* Calcium 9.3 Total Bilirubin 0.70 Direct Bilirubin 0.12 AST 134 H ALT 73 H Alkaline Phosphatase 137 H Troponin I High Sens 10 Total Protein 7.2 Albumin 3.4 Globulin 3.8 Lipase 37 Urine Color Yellow Urine Clarity Clear Urine pH 7.0 Ur Specific Malone 1.010 Urine Protein 100 H Urine Glucose (UA) 1000 H Urine Ketones Negative Urine Occult Blood 25 H Urine Nitrite Negative Urine Bilirubin Negative Urine Urobilinogen Normal Ur Leukocyte Esterase 25 H Urine RBC 0 SEEN Urine WBC 0-5 SEEN Ur Squamous Epith Cells 0 SEEN Urine Bacteria 0 SEEN Urine Mucus 0 SEEN Radiography Diagnostic Testing: Clinical Impression(s) from Imaging Studies Abdomen/Pelvis CT 03/29/23 04:19 IMPRESSION: 1. No acute abnormalities identified in the abdomen/pelvis. 2. Multiple small stones in the gallbladder. 3. Diverticular disease of the colon but no diverticulitis. Moderate amount of stool in the colon. Electronically Signed: Bonilla Cline MD at 6:26 EDT , Discharge Plan Triage Chief Complaint: Abd Pain ED Provider: Paul Newell Dx/Rx/DC Orders Clinical Impression: Abdominal pain, Hypertension Instructions: Abdominal Pain Prescriptions: No Action hydrocodone-acetaminophen [[place]] 10-325 mg tablet 1 tab PO Q8H PRN (Reason: Pain) glipizide 5 mg tablet extended release 24hr 5 mg PO DAILY Jardiance 10 mg tablet 10 mg PO DAILY metformin 500 mg tablet extended release 24 hr 500 mg PO DAILY lisinopril 40 mg tablet 40 mg PO DAILY vitamin B complex [B Complex-Vitamin B12] Tablet 1 tab PO DAILY melatonin 10 mg capsule 10 mg PO HS PRN (Reason: Insomnia) tamsulosin [Flomax] 0.4 mg capsule 0.4 mg PO DAILY omeprazole magnesium [Prilosec OTC] 20 mg tablet,delayed release (DR/EC) 20 mg PO DAILY esomeprazole magnesium 20 mg capsule,delayed release(DR/EC) 20 mg PO DAILY famotidine 20 mg tablet 20 mg PO QHS PRN (Reason: Heartburn) lorazepam 0.5 MG tablet 0.5 mg PO TID PRN PRN (Reason: Anxiety) amlodipine 10 MG tablet 10 mg PO DAILY simvastatin 20 MG tablet 20 mg PO QHS clopidogrel [Plavix] 75 mg tablet 75 mg PO DAILY Qty: 90 0RF amoxicillin-pot clavulanate 875-125 mg Tablet 875 mg PO BIDCM Qty: 10 0RF Primary Care Provider: Jessie Medina Referrals: Aleksandr Mccloud MD [Med Staff - Active Staff] - Jessie Medina NP-C [Primary Care Provider] - Activity Restrictions/Additional Instructions: Thank you for trusting us with your care today! Please take Tylenol (2 pills, 650 mg), ibuprofen (2 pills, 400 mg) every 6 hours as needed for pain and fever control. Please return to the emergency department if your symptoms change or worsen. Specifically develop worsening abdominal pain, vomiting, if you lose c onsciousness Please follow with your primary care physician, general surgery for further outpatient evaluation and management. Disposition Disposition: Home, Self Care Discharge Date/Time: 03/29/23 07:50
--- NOTE | 2023-03-29 04:19 | EKG12_ITS ---
Test Reason : ABD PAIN Blood Pressure : / mmHG Vent. Rate : 052 BPM Atrial Rate : 052 BPM P-R Int : 164 ms QRS Dur : 102 ms QT Int : 448 ms P-R-T Axes : 020 -17 006 degrees QTc Int : 416 ms Sinus bradycardia Inferior infarct , age undetermined Abnormal ECG Confirmed by ABHINAV BARKER, NIKKI ([id number]), newspaper or periodical editor ALFONZO JENKINS ([id number]) on 03/31/2023 12:32:26 PM Referred By: EDUARDO Confirmed By:NIKKI LA MD
--- NOTE | 2023-03-29 04:19 | CT_ITS ---
EXAM: CT ABDOMEN AND PELVIS WITH INTRAVENOUS CONTRAST CLINICAL INDICATION: Abdominal pain TECHNIQUE: Helically acquired images were obtained of the abdomen and pelvis with intravenous contrast. This CT exam was performed using one or more of the following dose reduction techniques: automated exposure control, adjustment of the mA and/or kV according to patient size, and/or use of iterative reconstruction technique. CONTRAST: IV 100mL Isovue-300 COMPARISON: CT abdomen and pelvis 05/05/2018 FINDINGS: LOWER THORAX: Coronary artery calcifications. Lung bases are clear. No cardiomegaly. No significant pericardial effusion. ABDOMEN: LIVER: Unremarkable. Homogeneous. No focal mass. GALLBLADDER AND BILE DUCTS: Multiple small stones in the gallbladder. No gallbladder distention or wall edema. No intra- or extrahepatic biliary ductal dilation. PANCREAS: Unremarkable. No focal cystic or solid mass. SPLEEN: Unremarkable. Normal size without focal cystic or solid mass. ADRENALS: Unremarkable. No nodules. KIDNEYS AND URETERS: Stable surgical changes to the lower pole of the right kidney. No hydronephrosis. STOMACH AND BOWEL: Diverticular disease of the colon but no diverticulitis. Moderate amount of stool in the colon. No stomach or bowel distention. PELVIS: APPENDIX: No evidence of acute appendicitis. BLADDER: Unremarkable. REPRODUCTIVE: Unremarkable as visualized. No mass. ABDOMEN and PELVIS: INTRAPERITONEAL SPACE: Unremarkable. No ascites or other fluid collection. No free air. BONES/JOINTS: Diffuse degenerative changes of the spine. No suspicious lytic or blastic abnormality. SOFT TISSUES: Unremarkable. No discrete abdominal or pelvic wall hernia. VASCULATURE: Moderate atherosclerotic changes of the abdominal aorta without aneurysm. LYMPH NODES: Unremarkable. No enlarged lymph nodes. CT/Abdomen/Pelvis W IV Cont ONLY IMPRESSION: 1. No acute abnormalities identified in the abdomen/pelvis. 2. Multiple small stones in the gallbladder. 3. Diverticular disease of the colon but no diverticulitis. Moderate amount of stool in the colon. Electronically Signed: Bonilla Cline MD at 6:26 EDT ,
[2023-03-29] MEDS: Ondansetron 4 MG/2 ML Vial IV (04:48)
[2023-03-29] MEDS: Morphine 4 MG/ML Syringe IV (04:48)
[2023-03-29 04:51] LABS: Absolute Lymphocyte Count 2.07 X10^3/uL (0.83-4.51); Absolute Neutrophil Count 4.3 X10^3/uL (2.0-7.7); Basophil# 0.02 X10^3/uL; Basophil% 0.3 % (0-1); Eosinophils% 4.1 % (0-5); Hematocrit 43.8 % (40-54); Hemoglobin 15.3 g/dL (13.0-16.5); Lymphocyte # 2.07 X10^3/ul (0.83-4.51); Lymphocyte % 28.1 % (19-41); Mean Corp Hgb Conc 34.9 g/dL (32-36); Mean Corpuscular Hgb 30.9 pg (27.0-32.0); Mean Corpuscular Volume 88.5 fL (80-94); Monocyte# 0.63 X10^3/uL; Monocyte% 8.5 % (0-10); NRBC Flagged by Analyzer 0 % (0-5); Neutrophil # 4.34 X10^3/uL (2.7-7.7); Neutrophil % 58.9 % (47-70); POSITIVE COUNT YES; Platelet Count 166 K/mm3 (150-450); RBC Distribution Width CV 13.6 % (11.6-14.6); RBC Distribution Width SD 43.9 fl (35.1-43.9); Red Blood Count 4.95 M/mm3 (4.6-6.2); White Blood Count 7.4 K/mm3 (4.4-11.0)
[2023-03-29 04:52] LABS: Differential Indicated SCAN CRITERIA MET
[2023-03-29 05:11] LABS: Bacteria 0 SEEN /hpf (None Seen); Mucous, Urine 0 SEEN /hpf (<or=2+); Red Blood Cells-Urine 0 SEEN /hpf (0-5); Squamous Epithelial Cells - UA 0 SEEN /hpf (0-5)
[2023-03-29 05:12] LABS: Color, Urine Yellow (Yellow); Glucose, Dipstick 1000 mg/dl (Normal); Ketone-Dipstick Negative (Negative); Leukocyte Esterase-Dipstick 25 /ul (Negative); Nitrite-Dipstick Negative (Negative); Occult Blood-Urine 25 /ul (Negative); Protein-Dipstick 100 mg/dl (Negative); Urine Bilirubin Dipstick Negative (Negative); Urine Clarity Clear (Clear); Urine Urobilinogen Normal (Normal)
[2023-03-29 05:22] LABS: AST(SGOT) 134 U/L (15-37); Alanine Aminotransfer ALT/SGPT 73 U/L (16-61); Albumin, Serum 3.4 g/dL (3.2-5.0); Alkaline Phosphatase 137 U/L (45-117); Anion Gap 7 (5-15); BUN 36 mg/dL (7-18); BUN/Creat Ratio 24.8 RATIO (10-20); Bilirubin, Direct 0.12 mg/dL (0.00-0.30); Calcium,Total 9.3 mg/dL (8.5-10.1); Chloride 112 mmol/L (98-107); Creatinine, Serum 1.45 mg/dL (0.70-1.30); EST Glomerular Filtration Rate 49 mL/min (>60); Est Glom Filt Rate - Afr Amer 59 mL/min (>60); Estimated Creatinine Clearance 37.51 ml/min; Globulin 3.8 g/dL (2.2-4.2); Glucose 132 mg/dL (74-106); Lipase 37 U/L (13-75); Potassium 4.6 mmol/L (3.5-5.1); Protein, Total 7.2 g/dL (6.4-8.2); Sodium Level 141 mmol/L (136-145); Troponin-I HS 10 pg/mL (3.0-78.0)
[2023-03-29 05:38] LABS: White Blood Cells 0-5 SEEN /hpf (0-5)
[2023-03-29 06:06] LABS: Lactic Acid 2.3 mmol/L (0.4-1.9)
[2023-03-29 06:21] LABS: Differential Comment SCANNED; Platelet Estimate ADEQUATE (ADEQ)
[2023-03-29 06:22] LABS: Platelet Morphology CLUMPED
[2023-03-29 06:54] VITALS: BP 184/79; PULSE 82; RESP 16; O2SAT 94
[2023-03-29 07:19] LABS: Lactic Acid 1.6 mmol/L (0.4-1.9)
[2023-03-29 07:50] VITALS: BP 161/62; PULSE 58; RESP 18
[2023-03-29 09:24] LABS: Reflex Lactate? Y
== END 2023-03-29 07:50 | disposition home or self-care (01) ==
PROVIDERS: Emergency Provider Emergency Medicine; PCP Nurse Practitioner Family; Visit Provider Emergency Medicine
DX: R10.9 Unspecified abdominal pain (principal); E11.51 Type 2 diabetes mellitus with diabetic peripheral angiopathy without gangrene; E11.22 Type 2 diabetes mellitus with diabetic chronic kidney disease; I12.9 Hypertensive chronic kidney disease with stage 1 through stage 4 chronic kidney disease, or unspecified chronic kidney disease; N18.9 Chronic kidney disease, unspecified; E78.5 Hyperlipidemia, unspecified; K21.9 Gastro-esophageal reflux disease without esophagitis; Z79.84 Long term (current) use of oral hypoglycemic drugs; Z79.02 Long term (current) use of antithrombotics/antiplatelets; Z79.899 Other long term (current) drug therapy; Z87.891 Personal history of nicotine dependence
CPT/HCPCS: 74177; 80048; 80076; 81001; 83605; 83690; 84484; 85025; 93005; 96361; 96374; 96375; 99282; J7040; Q9967; A4216; J2405

== ENCOUNTER → 2023-06-25 | Outpatient (CLI) | payer MEDICARE, SELFPAY ==
--- NOTE | 2023-06-25 08:57 | CDU_ITS ---
Reason For Study: Dizziness Rt. Velocities/BP Lt. Velocities/BP Prox CCA 88.6/8.4 cm/sec. Prox CCA 75.6/15.5 cm/sec. Mid CCA 75.2/9.1 cm/sec. Mid CCA 63.4/10.6 cm/sec. Dist CCA 53.5/8.1 cm/sec. Dist CCA 54.8/10.6 cm/sec. Prox ICA 39.8/9.8 cm/sec. Prox ICA 78.1/15.5 cm/sec. Mid ICA 63.9/13.8 cm/sec. Mid ICA 55.0/13.2 cm/sec. Dist ICA 46.9/13.8 cm/sec. Dist ICA 50.6/10.0 cm/sec. Rt. ICA/CCA = 0.8. Lt. ICA/CCA = 1.2. Prox ECA 74.3/6.2 cm/sec. Prox ECA 95.3/8.1 cm/sec. Rt. Vert. 40.2/5.1 cm/sec. Lt. Vert. 47.8/11.9 cm/sec. Right Extracranial There is heterogeneous, smooth atherosclerotic plaque noted in the right common carotid artery. There is heterogeneous, irregular atherosclerotic plaque noted in the right internal carotid artery. There is heterogeneous, smooth atherosclerotic plaque noted in the right external carotid artery. Antegrade flow is noted in the right vertebral artery. Left Extracranial There is heterogeneous, smooth atherosclerotic plaque noted in the left common carotid artery. There is heterogeneous, irregular atherosclerotic plaque noted in the left internal carotid artery. There is heterogeneous, irregular atherosclerotic plaque noted in the left external carotid artery. Antegrade flow is noted in the left vertebral artery. Procedure Carotid Duplex [id number]. This is a Carotid Duplex examination using B-mode, color flow and specral Doppler. The exam was diagnostic. Exam performed in department. VL/Carotid Duplex Ultrasound Interpretation Summary Mild (<50%) stenosis right extracranial internal carotid. Mild (<50%) stenosis left extracranial internal carotid. Patent and antegrade vertebrals bilaterally. Ordering Physician: Jessie Medina Referring Physician: Jessie Medina Performed By: Shan Rodriguez RVT
== END | disposition home or self-care (01) ==
LOC: CVS 08:54
PROVIDERS: PCP Nurse Practitioner Family; Referring Provider Nurse Practitioner Family; Visit Provider Nurse Practitioner Family
DX: R42 Dizziness and giddiness (principal)
CPT/HCPCS: 93880

== ENCOUNTER → 2023-07-17 | Outpatient (CLI) | payer MEDICARE, SELFPAY ==
[2023-07-17 18:14] LABS: ALB/GLOB Ratio 0.9 RATIO (0.9-2.4); AST(SGOT) 28 U/L (15-37); Alanine Aminotransfer ALT/SGPT 26 U/L (16-61); Albumin, Serum 3.3 g/dL (3.2-5.0); Alkaline Phosphatase 96 U/L (45-117); Anion Gap 5 (5-15); BUN 31 mg/dL (7-18); BUN/Creat Ratio 19.5 RATIO (10-20); Calcium,Total 8.6 mg/dL (8.5-10.1); Chloride 108 mmol/L (98-107); Creatinine, Serum 1.59 mg/dL (0.70-1.30); EST Glomerular Filtration Rate 44 mL/min (>60); Est Glom Filt Rate - Afr Amer 53 mL/min (>60); Globulin 3.6 g/dL (2.2-4.2); Glucose 229 mg/dL (74-106); Potassium 4.9 mmol/L (3.5-5.1); Protein, Total 6.9 g/dL (6.4-8.2); Sodium Level 140 mmol/L (136-145)
== END | disposition home or self-care (01) ==
LOC: MTLAB 14:52
PROVIDERS: PCP Nurse Practitioner Family; Referring Provider Nurse Practitioner Family; Visit Provider Nurse Practitioner Family
DX: K59.09 Other constipation (principal)
CPT/HCPCS: 36415; 80053; 83605

== ENCOUNTER → 2023-10-20 | Outpatient (CLI) | payer MEDICARE, SELFPAY ==
[2023-10-20 12:38] LABS: Absolute Lymphocyte Count 2.18 X10^3/uL (0.83-4.51); Absolute Neutrophil Count 3.9 X10^3/uL (2.0-7.7); Basophil# 0.05 X10^3/uL; Basophil% 0.7 % (0-1); Eosinophils% 4.2 % (0-5); Hematocrit 44.4 % (40-54); Lymphocyte # 2.18 X10^3/ul (0.83-4.51); Lymphocyte % 30.8 % (19-41); Mean Corp Hgb Conc 33.8 g/dL (32-36); Mean Corpuscular Hgb 30.1 pg (27.0-32.0); Mean Platelet Vol. 11.9 fl (6.2-12.0); Monocyte# 0.63 X10^3/uL; Monocyte% 8.9 % (0-10); NRBC Flagged by Analyzer 0 % (0-5); Neutrophil # 3.89 X10^3/uL (2.7-7.7); Neutrophil % 55.1 % (47-70); Platelet Count 246 K/mm3 (150-450); RBC Distribution Width CV 14.5 % (11.6-14.6); RBC Distribution Width SD 46.9 fl (35.1-43.9); Red Blood Count 4.99 M/mm3 (4.6-6.2); White Blood Count 7.1 K/mm3 (4.4-11.0)
[2023-10-20 14:49] LABS: ALB/GLOB Ratio 1.2 RATIO (0.9-2.4); AST(SGOT) 37 U/L (15-37); Alanine Aminotransfer ALT/SGPT 33 U/L (16-61); Albumin, Serum 3.8 g/dL (3.2-5.0); Alkaline Phosphatase 94 U/L (45-117); Anion Gap 9 (5-15); BUN 23 mg/dL (7-18); BUN/Creat Ratio 16.2 RATIO (10-20); Calcium,Total 9.3 mg/dL (8.5-10.1); Chloride 110 mmol/L (98-107); Creatinine, Serum 1.42 mg/dL (0.70-1.30); EST Glomerular Filtration Rate 50 mL/min (>60); Est Glom Filt Rate - Afr Amer 60 mL/min (>60); Globulin 3.3 g/dL (2.2-4.2); Glucose 73 mg/dL (74-106); Potassium 4.8 mmol/L (3.5-5.1); Protein, Total 7.1 g/dL (6.4-8.2); Sodium Level 142 mmol/L (136-145)
[2023-10-21 17:07] LABS: PSA, Total 2.8 ng/mL (0.0-4.0)
== END | disposition home or self-care (01) ==
LOC: MTLAB 09:32
PROVIDERS: PCP Nurse Practitioner Family; Referring Provider Nurse Practitioner Family; Visit Provider Nurse Practitioner Family
DX: Z12.5 Encounter for screening for malignant neoplasm of prostate (principal); E11.8 Type 2 diabetes mellitus with unspecified complications
CPT/HCPCS: 36415; 80053; 84153; 85025

== ENCOUNTER → 2024-01-19 | Outpatient (CLI) | payer MEDICARE, SELFPAY ==
[2024-01-19 10:42] LABS: Cholesterol 122 mg/dL (200); High Density Lipoprotein 42 mg/dL; Triglycerides 111 mg/dL; Very Low Density Lipoprotein 22 mg/dL (5-40)
[2024-01-19 11:54] LABS: Microalbumin:Creatinine Ratio 2338.4 mg/g CRE (<30 mg/g CRE)
== END | disposition home or self-care (01) ==
LOC: MTLAB 09:15
PROVIDERS: PCP Nurse Practitioner Family; Referring Provider Nurse Practitioner Family; Visit Provider Nurse Practitioner Family
DX: E11.29 Type 2 diabetes mellitus with other diabetic kidney complication (principal); E78.00 Pure hypercholesterolemia, unspecified
CPT/HCPCS: 36415; 80061; 82043; 82570

== ENCOUNTER → 2024-03-22 | Outpatient (CLI) | payer MEDICARE, SELFPAY ==
[2024-03-22 14:53] LABS: Absolute Neutrophil Count 5.5 X10^3/uL (2.0-7.7); Basophil# 0.04 X10^3/uL; Basophil% 0.5 % (0-1); Eosinophil# 0.23 X10^3/uL; Eosinophils% 2.7 % (0-5); Hematocrit 46.5 % (40-54); Hemoglobin 16.1 g/dL (13.0-16.5); Lymphocyte % 26.7 % (19-41); Mean Corp Hgb Conc 34.6 g/dL (32-36); Mean Corpuscular Volume 89.6 fL (80-94); Mean Platelet Vol. 11.4 fl (6.2-12.0); Monocyte# 0.59 X10^3/uL; Monocyte% 6.8 % (0-10); NRBC Flagged by Analyzer 0 % (0-5); Neutrophil # 5.45 X10^3/uL (2.7-7.7); Neutrophil % 63.1 % (47-70); Platelet Count 276 K/mm3 (150-450); RBC Distribution Width CV 13.8 % (11.6-14.6); RBC Distribution Width SD 45.1 fl (35.1-43.9); Red Blood Count 5.19 M/mm3 (4.6-6.2); White Blood Count 8.6 K/mm3 (4.4-11.0)
[2024-03-22 15:22] LABS: AST(SGOT) 33 U/L (15-37); Alanine Aminotransfer ALT/SGPT 33 U/L (16-61); Albumin, Serum 4.1 g/dL (3.2-5.0); Alkaline Phosphatase 111 U/L (45-117); Amylase 48 U/L (25-115); Anion Gap 11 (5-15); BUN 33 mg/dL (7-18); BUN/Creat Ratio 21.3 RATIO (10-20); Calcium,Total 9.7 mg/dL (8.5-10.1); Chloride 104 mmol/L (98-107); Creatinine, Serum 1.55 mg/dL (0.70-1.30); EST Glomerular Filtration Rate 45 mL/min (>60); Est Glom Filt Rate - Afr Amer 55 mL/min (>60); Glucose 88 mg/dL (74-106); Lipase 25 U/L (13-75); Protein, Total 8.1 g/dL (6.4-8.2); Sodium Level 139 mmol/L (136-145)
[2024-03-22 15:28] LABS: Lactic Acid 1.9 mmol/L (0.4-1.9)
--- NOTE | 2024-03-22 15:30 | CT_ITS ---
STUDY: CT ABDOMEN AND PELVIS WITH CONTRAST REASON FOR EXAM: Male, 89 years old. Right upper quadrant abdominal pain RADIATION DOSAGE (If Supplied By Facility): CTDIvol = ( 12.13 ) mGy, DLP = ( 737.44 ) mGycm TECHNIQUE: Transaxial images were obtained from the dome of the diaphragm to the symphysis pubis without oral contrast. IV 100mL Isovue-300 was administered. Sagittal and coronal images were reconstructed. Individualized dose optimization techniques were used for this CT. COMPARISON: Comparison is made with prior study dated March 29, 2023. FINDINGS: 2 mm noncalcified nodule in the lateral aspect of the right lower lobe. This is unchanged. Coronary artery calcification. There is decreased attenuation of the liver consistent with steatosis. There are multiple small gallstones. Normal spleen. There is diffuse atrophy of the pancreas. Normal bilateral adrenal glands. Normal right kidney. Normal left kidney. Normal visualized stomach. Normal small intestine. There are multiple colonic diverticula consistent with diverticulosis. Moderate amount of fecal material is seen in the colon. The appendix is visualized and appears normal. There is diffuse atherosclerotic calcification of the abdominal aorta and its visceral branches., without a demonstrated aneurysm. Normal inferior vena cava. Normal retroperitoneum. Normal urinary bladder. There is enlargement of the prostate gland. It measures 5.1 cm x 4.2 cm. This causes indentation at the bladder base. Normal abdominal wall. There are diffuse degenerative changes of the visualized lumbar spine. CT/Abdomen/Pelvis WITH Contrast IMPRESSION: Multiple small gallstones. Fatty infiltration of the liver. Electronically Signed: Darren Durbin MD at 15:45 EDT ,
== END | disposition home or self-care (01) ==
PROVIDERS: PCP Nurse Practitioner Family; Referring Provider Nurse Practitioner Family; Visit Provider Nurse Practitioner Family
DX: R10.31 Right lower quadrant pain (principal); R10.11 Right upper quadrant pain
CPT/HCPCS: 36415; 74177; 80053; 82150; 83605; 83690; 85025; Q9967

== ENCOUNTER → 2024-04-19 | Outpatient (CLI) | payer MEDICARE, SELFPAY ==
[2024-04-19 16:17] LABS: ALB/GLOB Ratio 0.9 RATIO (0.9-2.4); AST(SGOT) 29 U/L (15-37); Alanine Aminotransfer ALT/SGPT 32 U/L (16-61); Albumin, Serum 3.5 g/dL (3.2-5.0); Alkaline Phosphatase 93 U/L (45-117); Anion Gap 8 (5-15); BUN 34 mg/dL (7-18); BUN/Creat Ratio 22.5 RATIO (10-20); Calcium,Total 9.6 mg/dL (8.5-10.1); Chloride 108 mmol/L (98-107); Creatinine, Serum 1.51 mg/dL (0.70-1.30); EST Glomerular Filtration Rate 47 mL/min (>60); Est Glom Filt Rate - Afr Amer 56 mL/min (>60); Globulin 3.8 g/dL (2.2-4.2); Glucose 118 mg/dL (74-106); Potassium 4.2 mmol/L (3.5-5.1); Protein, Total 7.3 g/dL (6.4-8.2); Sodium Level 139 mmol/L (136-145)
[2024-04-19 16:31] LABS: Microalbumin:Creatinine Ratio 2087.9 mg/g CRE (<30 mg/g CRE)
== END | disposition home or self-care (01) ==
LOC: MTLAB 11:03
PROVIDERS: PCP Nurse Practitioner Family; Referring Provider Nurse Practitioner Family; Visit Provider Nurse Practitioner Family
DX: E11.8 Type 2 diabetes mellitus with unspecified complications (principal)
CPT/HCPCS: 36415; 80053; 82043; 82570

== ENCOUNTER → 2024-05-31 | Outpatient (CLI) | payer MEDICARE, SELFPAY ==
[2024-05-31 12:29] LABS: Anion Gap 8 (5-15); BUN 33 mg/dL (7-18); BUN/Creat Ratio 21.4 RATIO (10-20); Calcium,Total 9.8 mg/dL (8.5-10.1); Chloride 107 mmol/L (98-107); Cholesterol 108 mg/dL (200); Creatinine, Serum 1.54 mg/dL (0.70-1.30); EST Glomerular Filtration Rate 45 mL/min (>60); Est Glom Filt Rate - Afr Amer 55 mL/min (>60); Glucose 154 mg/dL (74-106); High Density Lipoprotein 42 mg/dL; Magnesium 2.1 mg/dL (1.6-2.6); Potassium 4.6 mmol/L (3.5-5.1); Sodium Level 139 mmol/L (136-145); Triglycerides 168 mg/dL; Very Low Density Lipoprotein 34 mg/dL (5-40)
[2024-05-31 13:36] LABS: Microalbumin:Creatinine Ratio 1084.9 mg/g CRE (<30 mg/g CRE)
== END | disposition home or self-care (01) ==
PROVIDERS: PCP Nurse Practitioner Family; Referring Provider Nurse Practitioner Family; Visit Provider Nurse Practitioner Family
DX: I73.9 Peripheral vascular disease, unspecified (principal); E11.29 Type 2 diabetes mellitus with other diabetic kidney complication; E78.00 Pure hypercholesterolemia, unspecified
CPT/HCPCS: 36415; 80048; 80061; 82043; 82570; 83735

== ENCOUNTER → 2024-06-07 | Outpatient (CLI) | payer MEDICARE, SELFPAY ==
--- NOTE | 2024-06-07 13:37 | ART_ITS ---
Reason For Study: Claudication Procedure A bilateral lower extremity continuous wave Doppler with analog waveform analysis and ankle brachial indexes. Left Segmental Pressures Left brachial= 165mmHg. Left posterior tibial artery = 99mmHg. Left dorsalis pedis artery = 93mmHg. Left digit = 78 mmHg. Right Segmental Pressures Right brachial= 152mmHg. Right posterior tibial artery = >254mmHg. Right dorsalis pedis artery = >254mmHg. Right digit = 0.41 mmHg. Indices The right ankle brachial index by the posterior tibial artery is NC. The right ankle brachial index by the dorsalis pedis is NC. The right digital-brachial index is 0.41. The left ankle brachial index by the posterior tibial artery is 0.60. The left ankle brachial index by the dorsalis pedis is 0.56. The left digital-brachial index is 0.47. VL/Ankle Brachial Index Interpretation Summary Right MANOHAR not able to be obtained due to non-compressible vessels. Doppler/PVR waveforms of the right leg moderately diminished at rest. Left MANOHAR 0.6, moderate arterial insufficiency. Doppler/PVR waveforms of the lef t leg moderately diminished at rest. Ordering Physician: Melodie Medina Referring Physician: MELODIE MEDINA PRINTING MACHINE OPERATOR [employer]UL[employer] Performed By: Lis Robles RDCS/RVT
== END | disposition home or self-care (01) ==
LOC: CVS 13:33
PROVIDERS: PCP Nurse Practitioner Family; Referring Provider Nurse Practitioner Family; Visit Provider Nurse Practitioner Family
DX: I73.9 Peripheral vascular disease, unspecified (principal)
CPT/HCPCS: 93922

== ENCOUNTER → 2024-11-01 | Outpatient (CLI) | payer MEDICARE, SELFPAY ==
[2024-11-01 14:33] LABS: Microalbumin:Creatinine Ratio 723.7 mg/g CRE (<30 mg/g CRE)
[2024-11-01 20:27] LABS: AST(SGOT) 36 U/L (15-37); Alanine Aminotransfer ALT/SGPT 35 U/L (16-61); Albumin, Serum 3.5 g/dL (3.2-5.0); Alkaline Phosphatase 100 U/L (45-117); Anion Gap 7 (5-15); BUN 29 mg/dL (7-18); BUN/Creat Ratio 17.1 RATIO (10-20); Calcium,Total 9.4 mg/dL (8.5-10.1); Chloride 110 mmol/L (98-107); EST Glomerular Filtration Rate 41 mL/min (>60); Est Glom Filt Rate - Afr Amer 49 mL/min (>60); Globulin 3.6 g/dL (2.2-4.2); Glucose 87 mg/dL (74-106); Potassium 5.3 mmol/L (3.5-5.1); Protein, Total 7.1 g/dL (6.4-8.2); Sodium Level 139 mmol/L (136-145)
== END | disposition home or self-care (01) ==
LOC: MTLAB 10:20
PROVIDERS: PCP Nurse Practitioner Family; Referring Provider Nurse Practitioner Family; Visit Provider Nurse Practitioner Family
DX: E11.22 Type 2 diabetes mellitus with diabetic chronic kidney disease (principal); E11.29 Type 2 diabetes mellitus with other diabetic kidney complication; N18.9 Chronic kidney disease, unspecified
CPT/HCPCS: 36415; 80053; 82043; 82570

== ENCOUNTER → 2024-11-03 | Outpatient (CLI) | payer MEDICARE, SELFPAY ==
[2024-11-03 12:52] LABS: Anion Gap 13 (5-15); BUN 30 mg/dL (4-19); BUN/Creat Ratio 18.3 RATIO (10-20); Calcium 9.8 mg/dL (7.6-11.0); Carbon Dioxide 25.3 mmol/L (22.0-29.0); Chloride 103 mmol/L (96-108); Creatinine, Serum 1.6 mg/dL (0.8-1.3); EST Glomerular Filtration Rate 40 (>60); Glucose 98 mg/dL (70-99); Potassium 4.6 mmol/L (3.3-5.1); Sodium Level 142 mmol/L (133-145)
== END | disposition home or self-care (01) ==
PROVIDERS: PCP Nurse Practitioner Family; Referring Provider Nurse Practitioner Family; Visit Provider Nurse Practitioner Family
DX: E87.5 Hyperkalemia (principal)
CPT/HCPCS: 80048